=== PATIENT | male | born 1940 | race Caucasian/White ===

== ENCOUNTER 2021-03-23 08:35 | Observation (INO) | payer MEDICARE, SELFPAY ==
--- NOTE | ~2021-03-23 | XR_ITS ---
XR shoulder RT min 2V DATE: 03/23/2021 10:06 INDICATION: Fall. Right shoulder pain. TECHNIQUE: 3 views COMPARISON: 03/16/2011 right shoulder FINDINGS: There is a comminuted fractures of the proximal right humerus including fracture through th e surgical neck and fracture of the greater tuberosity. There is mild superolateral displacement of t he major distal fragment. Alignment is preserved at the acromioclavicular and glenohumeral joints. Osteopenia. IMPRESSION: Comminuted fracture the proximal humerus including fracture of the surgical neck and grea ter tuberosity Osteopenia Reviewed, dictated and finalized at location B. GENCY TECHNICIAN IMPRESSION: Comminuted fracture the proximal humerus including fracture of the surgical neck and greater tuberosity Osteopenia
[2021-03-23 08:39] VITALS: BP 132/79; PULSE 55; RESP 18; TEMP 36.1; O2SAT 100
--- NOTE | 2021-03-23 09:42 | ED.GENADULT ---
HPI - General Adult General Chief complaint: Fall Stated complaint: fall, right arm pain Time Seen by Provider: 03/23/21 09:10 Source: patient, family and RN notes reviewed Mode of arrival: ambulatory Limitations: no limitations History of Present Illness HPI narrative: Patient is a 80-year-old male who presents with his for evaluation of having sustained a ground-level fall that was witnessed this morning they were in the bathroom when he was attempting and lost his balance and began to go backwards patient fell injuring the right shoulder denies any head injury or loss of consciousness patient presents noting swelling and tenderness to the right shoulder region denies any head neck pain chest belly or other extremity injury or deformity has not had anything for pain. Patient has history of early stages of dementia hypertension notes history of unsteady gait. Patient denies any recent illness or complaints and on arrival notes moderate aching pain to the right shoulder worse with any movement or manipulation has not had anything for pain at this time Related Data Home Medications Medication Instructions Recorded Confirmed acetaminophen-codeine 1 tablet PO Q6H PRN 03/23/21 03/23/21 allopurinol 03/23/21 alprazolam 03/23/21 amlodipine 03/23/21 bupropion HCl PO 03/23/21 carvedilol 03/23/21 glipizide mg 03/23/21 pravastatin 03/23/21 prednisone 03/23/21 03/23/21 Allergies Allergy/AdvReac Type Severity Reaction Status Date / Time No Known Allergies Allergy Unknown Unverified 03/23/21 08:44 Review of Systems Review of Systems: All systems reviewed & are unremarkable except as noted in HPI and below PMFSH Past Medical History Medical History (Updated 03/23/21 @ 12:36 by Oren Nowak PA-C) Dementia Hyperlipidemia Hypertension Social History Social History (Updated 03/23/21 @ 10:35 by Oren Nowak PA-C) Smoking status: Never smoker Exam Narrative: GENERAL: Well-appearing, well-nourished, and in no acute distress. HEAD: Normocephalic, atraumatic. EYES: PERRLA and EOMI. ENT: Nares clear, no rhinorrhea or epistaxis. Mucous membranes moist. NECK: Supple. No adenopathy or masses. CHEST: Clear to auscultation. No respiratory distress. No wheezes rales or rhonchi HEART: Regular rate and rhythm. No murmur heard. Normal peripheral pulses. ABDOMEN: Soft, nontender, nondistended EXTREMITIES: Bruising swelling and tenderness of the right shoulder joint, remainder of extremities nontender no deformity. SKIN: Warm, dry, no rash. NEURO: No focal deficits. Alert and oriented x3. Cranial nerves II through XII grossly intact. Neurovascularly intact. Capillary refill less than 2 seconds PSYCH: Normal mood and affect. Course Course Emergency Course: Patient in the room found to have humerus fracture will be placed in hospital given his unsteady gait and concern for falls he is right-handed will be immobilized orthopedic surgery was consulted will follow him in hospital discussion was made with the hospitalist and he will be brought into the hospital given the safety concerns at home and his high risk for recurrent fall Consultations Consultation #1: Discussed case with orthopedist who will consult on the patient would like him placed in a shoulder immobilizer discussed case with the hospitalist service nurse practitioner Shante who is agreed to accept the patient to a medical surgical floor Date: 03/23/21 Vital Signs Vital signs: Vital Signs Temperature 97 F L 03/23/21 08:39 Pulse Rate 55 L 03/23/21 08:39 Respiratory Rate 18 03/23/21 08:39 Blood Pressure 132/79 03/23/21 08:39 Pulse Oximetry 100 03/23/21 08:39 Temperature 97 F L 03/23/21 08:39 Pulse Rate 61 03/23/21 10:45 Respiratory Rate 16 03/23/21 10:45 Blood Pressure 107/60 03/23/21 10:45 Pulse Oximetry 98 03/23/21 10:45 Medical Decision Making MDM Narrative Medical decision making narrati
[2021-03-23 10:23] LABS: Basophils Percent Auto 0.4 % (0.2-1.2); Eosinophils Absolute Auto 0.1 K/mm3 (0-0.3); Eosinophils Percent Auto 1.3 % (0-4.4); Hematocrit 38.8 % (42.0-52.0); Hemoglobin 13.2 g/dL (14.0-18.0); Immature Granulocyte Absolute 0.04 K/mm3 (0.00-0.031); Immature Granulocyte Percent A 0.4 % (0-0.5); Lymphocytes Absolute Auto 1.58 K/mm3 (0.9-3.2); Lymphocytes Percent Auto 15.7 % (18.3-44.2); Mean Corpuscular Hemoglobin 32.8 pg (26-34); Mean Corpuscular Volume 96.3 fl (80-100); Mean Platelet Volume 8.8 fl (7.4-10.4); Monocytes Absolute Auto 0.4 K/mm3 (0.1-0.6); Monocytes Percent Auto 3.9 % (2.6-8.5); Neutrophils Absolute Auto 7.9 K/mm3 (1.3-6.7); Neutrophils Percent Auto 78.3 % (45.5-73.1); Platelet Count Result 282 k/mm3 (150-375); Red Blood Count 4.03 M/mm3 (4.6-6.20); Red Cell Distribution Width 11.8 % (11.5-14.5); White Blood Count 10.1 K/mm3 (4.5-10.0)
[2021-03-23 10:35] LABS: Alanine Aminotransferase 17 U/L (4-50); Albumin Level 4.2 g/dL (3.5-5.1); Alkaline Phosphatase 94 U/L (38-126); Anion Gap 8 mmol/L (8-16); Aspartate Amino Transferase 20 U/L (17-59); Bilirubin,Total 1.1 mg/dL (0.2-1.3); Blood Urea Nitrogen 19 mg/dL (9-20); Calcium 8.8 mg/dL (8.4-10.2); Carbon Dioxide 23 mmol/L (22-30); Chloride 102 mmol/L (98-107); Estimated CRCL calculation 32 ml/min; Estimated Glomerular Filt Rate 39; Glucose 356 mg/dL (65-110); Potassium 4.4 mmol/L (3.4-5.0); Sodium 133 mmol/L (137-145)
[2021-03-23 10:45] VITALS: BP 107/60; PULSE 61; RESP 16; O2SAT 98
[2021-03-23] MEDS: SODIUM CHLORIDE 0.9% IV 1,000 ML 999 ML IV CONT (10:47)
[2021-03-23] MEDS: MORPHINE SULFATE (*CRX) 4 MG/ML INJ 2 MG IV PUSH (10:48)
[2021-03-23] MEDS: LACTATED RINGERS 1,000 ML 80 ML IV CONT (13:10)
[2021-03-23 13:11] VITALS: BP 100/67; PULSE 63; RESP 17; O2SAT 97
--- NOTE | 2021-03-23 13:18 | PC.NURSE ---
ordered pt meal tray at this time
--- NOTE | 2021-03-23 13:53 | PM.IMHP ---
H&P: HPI History of Present Illness Date/Time: 03/23/21 13:53 this is a 80-year-old male patient who presented to the emergency room with his for evaluation of sustaining sustaining a ground level fall that was witnessed this morning. They were in the bathroom and he started to lean backwards and fell on the floor the attempted to catch him.The patient had been complaining of right shoulder pain. The is answering the questions for the patient as he has a hx of dementia . The stated that it is not uncommon for the patient to have an unsteady gait. He had his righ arm in the sling and was using an utensils to eat with his left hand in the ed. He denies any head pain. He denies hitting his head and he is not on any blood thinners. Shoulder x-ray was read as comminuted fracture the proximal humerus including fracture of the surgical neck and greater tuberosity. Osteopenia. The right arm was placed in a sling. Ortho has been consulted. The patientwas given iv tylenol, iv morphine, and iv fluids in the ed. and H 13.2 and 38.8. Blood sugar 377. The patient as if of it.The patient is positive for covid . The patient wasInitially admitted to inpatient but then changed to observation. Date of service 03/23/2021. Chief Complaint: fall Review of Systems Review of Systems: All systems reviewed & are unremarkable except as noted in HPI and below Constitutional: Constitutional: Reports as per HPI and Reports no additional constitutional complaints Eyes: Eyes: Reports as per HPI and Reports no additional eye complaints ENT: Reports system reviewed and no additional complaints, except as documented and Reports Normal hearing present Cardiovascular: Cardiovascular: Reports no additional cardiovascular complaints Respiratory: Respiratory: Reports no additional respiratory complaints and Reports no additional respiratory complaints Gastrointestinal: Gastrointestinal: Reports as per HPI and Reports no additional gastrointestinal complaints Musculoskeletal: Musculoskeletal: Reports no additional musculoskeletal complaints Integumentary/Breasts: Skin/Breast: Reports system reviewed and no additional complaints, except as docu and Reports as per HPI Neurologic: Reports system reviewed and no additional complaints, except as documented, Reports as per HPI and Reports Normal hearing present Psychiatric: Psychiatric: Reports no additional psychiatric complaints and Reports as per HPI Endocrine: Endocrine: Reports no additional endocrine complaints Hematologic/Lymphatic: Hematologic/Lymphatic: Reports no additional hematologic/lymphatic complaints Allergic/Immunologic: Allergic/Immunologic: Reports no additional allergic/immunologic complaints [facility] Past Medical History Medical History (Updated 03/23/21 @ 16:39 by Shante Ponce NP) Anxiety Dementia Diabetes Gout Hyperlipidemia Hypertension Osteoarthritis Surgical History Surgical History (Updated 03/23/21 @ 13:56 by Shante Ponce NP) Cataract extraction status Family History Family History Mother Skin cancer Father Dementia Heart disease Social History Social History (Updated 03/23/21 @ 16:28 by Shante Ponce NP) Social History: He and his adopted 2children. His is the poa. 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 Lifelong nonsmoker. No alcohol marijuana or illicit drugs code status: dnr Smoking status: Never smoker Meds Home Medications and Allergies Home Medications Medication Instructions Recorded Confirmed Type acetaminophen-codeine 1 tablet PO Q6H PRN 03/23/21 03/23/21 History allopurinol 03/23/21 History alprazolam 03/23/21 History amlodipine 03/23/21 History bupropion HCl PO 03/23/21 History carvedilol 03/23/21 History glipizide mg 03/23/21 History pravastatin 03/23/21 History prednisone 03/23/21
[2021-03-23 14:30] LABS: Glucose Point of Care 377 mg/dl (65-105)
--- NOTE | 2021-03-23 14:52 | PCOTNOTE ---
Pt. currently in ED dept. Pt. will be evaluated upon admit to hospital.
[2021-03-23] MEDS: INSULIN ASPART (*BKC) 100 UNITS/ML SUB-Q ×2 (14:53→17:20)
[2021-03-23 15:11] LABS: SARS-CoV-2 RNA PCR Positive
[2021-03-23 17:18] LABS: Glucose Point of Care 347 mg/dl (65-105)
[2021-03-23] MEDS: MORPHINE SULFATE (*CRX) 2 MG/ML INJ IV PUSH (17:21)
[2021-03-23 17:24] VITALS: BP 100/67; PULSE 63; RESP 18; O2SAT 99
--- NOTE | 2021-03-23 18:31 | PC.NURSE ---
Tried to clarify medication with pt at bedside unable to inform this nurse what medication he takes, called no answer, calling daughter.
--- NOTE | 2021-03-23 19:16 | PC.NURSE ---
PEr POA, pt not to make health care discussion r/t dx dementia, medication clarified with and daughter via phone.
[2021-03-23 19:17] VITALS: BMI 25.1
--- NOTE | 2021-03-23 19:18 | PC.NURSE ---
This patient, Marcella Desai, was admitted to [facility] Surg Room 305-01 at 1742. Patient/family oriented to hospital policies and general routines including ID bracelet, bed and alarms, visiting hours, pain management, procedures, bathroom and other care routines, personal items, smoking policy, room service/diet, and visiting hours. Information on how to activate the Rapid Response Team has been discussed. Patient/Family are encouraged to report perceived risks to care and to ask questions if they do not understand what they are told or what they should do.
[2021-03-23 20:40] VITALS: BP 121/65; PULSE 62; RESP 16; TEMP 36.9; O2SAT 95
[2021-03-23] MEDS: buPROPion HCL SR (12 HR) 150 MG TAB PO (21:37)
[2021-03-23] MEDS: FAMOTIDINE 20 MG/2 ML VIAL IV PUSH (21:37)
[2021-03-23 23:54] VITALS: BP 121/83; PULSE 74; RESP 18; TEMP 36.6; O2SAT 94
[2021-03-24 04:00] VITALS: BP 114/89; PULSE 73; RESP 18; TEMP 36.6; O2SAT 96
[2021-03-24] MEDS: MORPHINE SULFATE (*CRX) 2 MG/ML INJ IV PUSH ×3 (04:46→18:27)
[2021-03-24 06:28] LABS: Glucose Point of Care 266 mg/dl (65-105)
[2021-03-24 06:32] LABS: Basophils Percent Auto 0.2 % (0.2-1.2); Eosinophils Absolute Auto 0.1 K/mm3 (0-0.3); Eosinophils Percent Auto 0.8 % (0-4.4); Hematocrit 37.2 % (42.0-52.0); Hemoglobin 12.6 g/dL (14.0-18.0); Immature Granulocyte Absolute 0.03 K/mm3 (0.00-0.031); Immature Granulocyte Percent A 0.4 % (0-0.5); Lymphocytes Absolute Auto 1.24 K/mm3 (0.9-3.2); Lymphocytes Percent Auto 14.8 % (18.3-44.2); Mean Corpuscular HGB Conc 33.9 g/dl (32-36); Mean Corpuscular Hemoglobin 32.6 pg (26-34); Mean Corpuscular Volume 96.4 fl (80-100); Mean Platelet Volume 8.9 fl (7.4-10.4); Monocytes Absolute Auto 0.6 K/mm3 (0.1-0.6); Monocytes Percent Auto 7.4 % (2.6-8.5); Neutrophils Absolute Auto 6.4 K/mm3 (1.3-6.7); Neutrophils Percent Auto 76.4 % (45.5-73.1); Platelet Count Result 251 k/mm3 (150-375); Red Blood Count 3.86 M/mm3 (4.6-6.20); Red Cell Distribution Width 11.6 % (11.5-14.5); White Blood Count 8.4 K/mm3 (4.5-10.0)
[2021-03-24 06:40] LABS: Alanine Aminotransferase 14 U/L (4-50); Albumin Level 3.8 g/dL (3.5-5.1); Alkaline Phosphatase 78 U/L (38-126); Anion Gap 7 mmol/L (8-16); Aspartate Amino Transferase 19 U/L (17-59); Bilirubin,Total 1.3 mg/dL (0.2-1.3); Blood Urea Nitrogen 15 mg/dL (9-20); Calcium 9.4 mg/dL (8.4-10.2); Carbon Dioxide 24 mmol/L (22-30); Chloride 103 mmol/L (98-107); Estimated CRCL calculation 38 ml/min; Estimated Glomerular Filt Rate 49; Glucose 262 mg/dL (65-110); Lactate Dehydrogenase 396 U/L (313-618); Magnesium 1.7 mg/dL (1.6-2.3); Potassium 3.9 mmol/L (3.4-5.0); Sodium 134 mmol/L (137-145)
--- NOTE | 2021-03-24 07:07 | PCOTNOTE ---
Waiting for ortho consult to complete OT evaluation. Will follow.
[2021-03-24 08:00] VITALS: BP 148/67; PULSE 77; RESP 16; TEMP 36.6; O2SAT 98
[2021-03-24] MEDS: ALPRAZolam (*CRX) 0.25 MG TABLET PO (08:45)
[2021-03-24] MEDS: FAMOTIDINE 20 MG/2 ML VIAL IV PUSH ×2 (08:46→20:31)
[2021-03-24] MEDS: INSULIN ASPART (*BKC) 100 UNITS/ML SUB-Q ×2 (08:49→12:45)
[2021-03-24 08:52] VITALS: PULSE 80
[2021-03-24] MEDS: amLODIPine BESYLATE 5 MG TABLET 10 MG PO (08:52)
[2021-03-24] MEDS: buPROPion HCL SR (12 HR) 150 MG TAB PO ×2 (08:52→20:31)
[2021-03-24] MEDS: LORATADINE 10 MG TABLET PO (08:52)
[2021-03-24] MEDS: allopurinoL 100 MG TABLET PO (08:52)
[2021-03-24] MEDS: LOSARTAN POTASSIUM 50 MG TABLET PO (08:52)
[2021-03-24] MEDS: carvediloL 6.25 MG TABLET PO (08:52)
[2021-03-24] MEDS: PRAVASTATIN SODIUM 20 MG TABLET PO (08:52)
[2021-03-24] MEDS: glipiZIDE 5 MG TABLET PO (08:52)
[2021-03-24 09:36] LABS: Glucose Point of Care 246 mg/dl (65-105)
[2021-03-24 11:59] LABS: Glucose Point of Care 207 mg/dl (65-105)
[2021-03-24 12:00] VITALS: BP 106/66; PULSE 66; RESP 16; TEMP 36.2; O2SAT 95
--- NOTE | 2021-03-24 13:36 | PM.DS ---
DS: Summary Time Spent with Patient Time attestation: Total time spent providing and/or coordinating discharge services: DS: Data Data Completed and Pending Labs on day of discharge: Labs from last 24 hours 03/24/21 03/24/21 03/24/21 11:56 08:48 06:14 WBC RBC Hgb Hct MCV MCH MCHC RDW Plt Count MPV Immature Gran % (Auto) Neut % (Auto) Lymph % (Auto) [place] % (Auto) Eos % (Auto) Baso % (Auto) Lymph # (Auto) [place] # (Auto) Eos # (Auto) Baso # (Auto) Abs Immat Gran (auto) Absolute Neuts (auto) Absolute Nucleated RBC Nucleated RBC % Sodium Potassium Chloride Carbon Dioxide Anion Gap BUN Creatinine Estim Creat Clear Calc Estimated GFR Glucose POC Capillary Glucose 207 H 246 H 266 H Hemoglobin A1c Lactic Acid Calcium Magnesium Ferritin Total Bilirubin AST ALT Alkaline Phosphatase Lactate Dehydrogenase Total Protein Albumin TSH (Reflex) SARS-CoV-2 RNA (RT-PCR) 03/24/21 03/24/21 03/24/21 05:51 05:51 05:51 WBC RBC Hgb Hct MCV MCH MCHC RDW Plt Count MPV Immature Gran % (Auto) Neut % (Auto) Lymph % (Auto) [place] % (Auto) Eos % (Auto) Baso % (Auto) Lymph # (Auto) [place] # (Auto) Eos # (Auto) Baso # (Auto) Abs Immat Gran (auto) Absolute Neuts (auto) Absolute Nucleated RBC Nucleated RBC % Sodium 134 L Potassium 3.9 Chloride 103 Carbon Dioxide 24 Anion Gap 7 L BUN 15 Creatinine 1.40 H Estim Creat Clear Calc 38 Estimated GFR 49 L Glucose 262 H POC Capillary Glucose Hemoglobin A1c Lactic Acid 1.0 Calcium 9.4 Magnesium 1.7 Ferritin 167.00 Total Bilirubin 1.3 AST 19 ALT 14 Alkaline Phosphatase 78 Lactate Dehydrogenase 396 Total Protein 6.0 L Albumin 3.8 TSH (Reflex) 2.290 SARS-CoV-2 RNA (RT-PCR) 03/24/21 03/24/21 03/23/21 05:51 05:51 17:16 WBC 8.4 RBC 3.86 L Hgb 12.6 L Hct 37.2 L MCV 96.4 MCH 32.6 MCHC 33.9 RDW 11.6 Plt Count 251 MPV 8.9 Immature Gran % (Auto) 0.4 Neut % (Auto) 76.4 H Lymph % (Auto) 14.8 L [place] % (Auto) 7.4 Eos % (Auto) 0.8 Baso % (Auto) 0.2 Lymph # (Auto) 1.24 [place] # (Auto) 0.6 Eos # (Auto) 0.1 Baso # (Auto) 0.0 Abs Immat Gran (auto) 0.03 Absolute Neuts (auto) 6.4 Absolute Nucleated RBC 0.0 Nucleated RBC % 0.0 Sodium Potassium Chloride Carbon Dioxide Anion Gap BUN Creatinine Estim Creat Clear Calc Estimated GFR Glucose POC Capillary Glucose 347 H Hemoglobin A1c 10.0 H Lactic Acid Calcium Magnesium Ferritin Total Bilirubin AST ALT Alkaline Phosphatase Lactate Dehydrogenase Total Protein Albumin TSH (Reflex) SARS-CoV-2 RNA (RT-PCR) 03/23/21 03/23/21 14:26 14:22 WBC RBC Hgb Hct MCV MCH MCHC RDW Plt Count MPV Immature Gran % (Auto) Neut % (Auto) Lymph % (Auto) [place] % (Auto) Eos % (Auto) Baso % (Auto) Lymph # (Auto) [place] # (Auto) Eos # (Auto) Baso # (Auto) Abs Immat Gran (auto) Absolute Neuts (auto) Absolute Nucleated RBC Nucleated RBC % Sodium Potassium Chloride Carbon Dioxide Anion Gap BUN Creatinine Estim Creat Clear Calc Estimated GFR Glucose POC Capillary Glucose 377 H Hemoglobin A1c Lactic Acid Calcium Magnesium Ferritin Total Bilirubin AST ALT Alkaline Phosphatase Lactate Dehydrogenase Total Protein Albumin TSH (Reflex) SARS-CoV-2 RNA (RT-PCR) Positive A Discharge Plan Discharge Attending physician on discharge: Abdelrahman Beckwith Consulting providers: Jl Robbins Discharging Clinician: Abdelrahman Beckwith Patient Disposition: Home, Self-Care Act
--- NOTE | 2021-03-24 15:41 | PC.NURSE ---
Patient's discharge order stopped per Dr. Beckwith r/t patient's family request. Patient's family would like further PT/OT evaluation r/t recent fall and fracture. Family made aware per Dr. Robbins that patient is not a candidate for surgery r/t dementia dx and age and fracture status. Daughter of patient made aware and voiced understanding.
[2021-03-24 16:00] VITALS: BP 143/73; PULSE 73; RESP 18; TEMP 36.4; O2SAT 99
[2021-03-24 16:40] LABS: Glucose Point of Care 162 mg/dl (65-105)
[2021-03-24 20:00] VITALS: BP 124/80; PULSE 76; PULSE 84; RESP 18; TEMP 37.1; O2SAT 100; O2SAT 90
[2021-03-24 20:45] LABS: Glucose Point of Care 231 mg/dl (65-105)
[2021-03-25] VITALS: BP 121/93; PULSE 84; RESP 18; TEMP 37.6; O2SAT 90
[2021-03-25 04:00] VITALS: BP 128/78; PULSE 90; RESP 18; TEMP 36.7; O2SAT 97
[2021-03-25] MEDS: MORPHINE SULFATE (*CRX) 2 MG/ML INJ IV PUSH ×2 (05:53→09:18)
[2021-03-25 08:00] VITALS: BP 128/80; PULSE 83; PULSE 94; RESP 18; TEMP 36.6; O2SAT 95
[2021-03-25 08:13] LABS: Glucose Point of Care 228 mg/dl (65-105)
[2021-03-25] MEDS: ALPRAZolam (*CRX) 0.25 MG TABLET PO (09:18)
[2021-03-25] MEDS: FAMOTIDINE 20 MG/2 ML VIAL IV PUSH (09:19)
[2021-03-25] MEDS: amLODIPine BESYLATE 5 MG TABLET 10 MG PO (09:19)
[2021-03-25] MEDS: buPROPion HCL SR (12 HR) 150 MG TAB PO (09:19)
[2021-03-25] MEDS: PRAVASTATIN SODIUM 20 MG TABLET PO (09:19)
[2021-03-25] MEDS: allopurinoL 100 MG TABLET PO (09:19)
[2021-03-25 09:20] VITALS: PULSE 94
[2021-03-25] MEDS: LORATADINE 10 MG TABLET PO (09:20)
[2021-03-25] MEDS: carvediloL 6.25 MG TABLET PO (09:20)
[2021-03-25] MEDS: LOSARTAN POTASSIUM 50 MG TABLET PO (09:20)
[2021-03-25] MEDS: glipiZIDE 5 MG TABLET PO (09:20)
[2021-03-25] MEDS: LIDOCAINE 5% PATCH 2 PATCH TRANSDERM (09:21)
[2021-03-25] MEDS: INSULIN ASPART (*BKC) 100 UNITS/ML SUB-Q ×2 (09:22→13:06)
[2021-03-25 11:36] VITALS: BMI 25.1
--- NOTE | 2021-03-25 11:50 | PM.IMPN ---
Progress Note: A&P Assessment and Plan (1) Closed fracture of proximal end of right humerus: Code(s): S42.201A - Unspecified fracture of upper end of right humerus, initial encounter for closed fracture Status: Acute Assessment and Plan: ortho has been consulted, pt /ot evaluation 03/24/2021 interval history. patient with COVID remains clinically stable not requiring any oxygen and does not appear to be any distress, patient had a fall and has a fracture of the right humerus orthopedic review x-ray of the arm patient does not need any surgical intervention recommended sling and conservative management with pain medication, and physical therapy. plan was to discharge the patient home yesterday within was decided by the family to transfer the patient to care home facility, discussed with child care associate teacher and it is in process. will continue to monitor. (2) COVID: Code(s): U07.1 - COVID-19 Status: Acute Assessment and Plan: the patient is on room air at this time. contact and air born precautions. (3) Diabetes: Code(s): E11.9 - Type 2 diabetes mellitus without complications Status: Chronic Assessment and Plan: The patient has been on steroids for his arthritis and this may be elevating his blood sugars. for now i placed him on ss insulin with accuchecks ac and hs. cage supervisor consult and diabetic eduator needed as well . may consider adding another oral medication if his blood sugars continue to remain elevated. continue with home glipizide (4) Anxiety: Code(s): F41.9 - Anxiety disorder, unspecified Status: Chronic Assessment and Plan: constinue with alprazolam and Bupropion (5) Gout: Code(s): M10.9 - Gout, unspecified Status: Chronic Assessment and Plan: continue with allopurinal (6) Hypertension: Code(s): I10 - Essential (primary) hypertension Status: Chronic Assessment and Plan: continue with correg (7) Hyperlipidemia: Code(s): E78.5 - Hyperlipidemia, unspecified Status: Chronic Assessment and Plan: continue with prevastatin Subjective Date/time seen: 03/24/2021 this is a 80-year-old male patient who presented to the emergency room with his for evaluation of sustaining sustaining a ground level fall that was witnessed this morning. They were in the bathroom and he started to lean backwards and fell on the floor the attempted to catch him.The patient had been complaining of right shoulder pain. The is answering the questions for the patient as he has a hx of dementia . The stated that it is not uncommon for the patient to have an unsteady gait. He had his righ arm in the sling and was using an utensils to eat with his left hand in the ed. He denies any head pain. He denies hitting his head and he is not on any blood thinners. Shoulder x-ray was read as comminuted fracture the proximal humerus including fracture of the surgical neck and greater tuberosity. Osteopenia. The right arm was placed in a sling. Ortho has been consulted. The patientwas given iv tylenol, iv morphine, and iv fluids in the ed. and H 13.2 and 38.8. Blood sugar 377. The patient as if of it.The patient is positive for covid . The patient was Initially admitted to inpatient but then changed to observation. Date of service 03/23/2021. 03/24/2021 interval history. patient with COVID remains clinically stable not requiring any oxygen and does not appear to be any distress, patient had a fall and has a fracture of the right humerus orthopedic review x-ray of the arm patient does not need any surgical intervention recommended sling and conservative management with pain medication, and physical therapy. plan was to discharge the patient home yesterday within was decided by the family to transfer the patient to care home facility, discussed with child care associate teacher and it is in process. will lindsay
--- NOTE | 2021-03-25 12:05 | PM.IMPN ---
Progress Note: A&P Assessment and Plan (1) Closed fracture of proximal end of right humerus: Code(s): S42.201A - Unspecified fracture of upper end of right humerus, initial encounter for closed fracture Status: Acute Assessment and Plan: ortho has been consulted, pt /ot evaluation 03/24/2021 interval history. patient with COVID remains clinically stable not requiring any oxygen and does not appear to be any distress, patient had a fall and has a fracture of the right humerus orthopedic review x-ray of the arm patient does not need any surgical intervention recommended sling and conservative management with pain medication, and physical therapy. plan was to discharge the patient home yesterday within was decided by the family to transfer the patient to intermediate facility, discussed with farm or ranch animal caretaker and it is in process. will continue to monitor. 03/25/2021 interval history. today patient remains clinically stable sitting in the chair eating his breakfast has no new complaints patient has history of diabetes his hemoglobin A1c is 10, patient is currently glipizide 5mg, patient remains clinically stable will discharge patient today (2) COVID: Code(s): U07.1 - COVID-19 Status: Acute Assessment and Plan: the patient is on room air at this time. contact and air born precautions. (3) Diabetes: Code(s): E11.9 - Type 2 diabetes mellitus without complications Status: Chronic Assessment and Plan: The patient has been on steroids for his arthritis and this may be elevating his blood sugars. for now i placed him on ss insulin with accuchecks ac and hs. time study analyst consult and diabetic eduator needed as well . may consider adding another oral medication if his blood sugars continue to remain elevated. continue with home glipizide (4) Anxiety: Code(s): F41.9 - Anxiety disorder, unspecified Status: Chronic Assessment and Plan: constinue with alprazolam and Bupropion (5) Gout: Code(s): M10.9 - Gout, unspecified Status: Chronic Assessment and Plan: continue with allopurinal (6) Hypertension: Code(s): I10 - Essential (primary) hypertension Status: Chronic Assessment and Plan: continue with correg (7) Hyperlipidemia: Code(s): E78.5 - Hyperlipidemia, unspecified Status: Chronic Assessment and Plan: continue with prevastatin Subjective Date/time seen: 03/25/21 12:05 03/24/2021 interval history. patient with COVID remains clinically stable not requiring any oxygen and does not appear to be any distress, patient had a fall and has a fracture of the right humerus orthopedic review x-ray of the arm patient does not need any surgical intervention recommended sling and conservative management with pain medication, and physical therapy. plan was to discharge the patient home yesterday within was decided by the family to transfer the patient to intermediate facility, discussed with farm or ranch animal caretaker and it is in process. will continue to monitor. 03/25/2021 interval history. today patient remains clinically stable sitting in the chair eating his breakfast has no new complaints patient has history of diabetes his hemoglobin A1c is 10, patient is currently glipizide 5mg, patient remains clinically stable will discharge patient today Review of Systems Review of Systems: All systems reviewed & are unremarkable except as noted in HPI and below Exam Narrative: Patient is comfortable, NAD HEENT: eyes are clear and none icteric LUNGS: normal respiratory effort ABD: not distended Lower extremities: no edema MS: right arm in the sling. SKIN: nonjaundiced Neuro: grossly intact. Objective Data Vital Signs Vital Signs: Vital Signs - 24 hr 03/24/21 16:00 03/24/21 20:00 03/25/21 00:00 Temperature 97.5 F L 98.8 F 99.7 F H Pulse Rate 73 84 84 Respiratory Rate 18 18 18 Blood Pr
[2021-03-25 12:12] LABS: Glucose Point of Care 266 mg/dl (65-105)
--- NOTE | 2021-03-25 12:50 | PM.DS ---
DS: Admitting Diagnosis Discharge Date 03/25/2021 Admitting Diagnosis Fall DS: Discharge Diagnosis Discharge Diagnosis (1) Closed fracture of proximal end of right humerus: Qualifiers: Encounter type: initial encounter Fracture morphology: unspecified fracture morphology Qualified Code(s): S42.201A - Unspecified fracture of upper end of right humerus, initial encounter for closed fracture Code(s): S42.201A - Unspecified fracture of upper end of right humerus, initial encounter for closed fracture Status: Acute Assessment and Plan: ortho has been consulted, pt /ot evaluation 03/24/2021 interval history. patient with COVID remains clinically stable not requiring any oxygen and does not appear to be any distress, patient had a fall and has a fracture of the right humerus orthopedic review x-ray of the arm patient does not need any surgical intervention recommended sling and conservative management with pain medication, and physical therapy. plan was to discharge the patient home yesterday within was decided by the family to transfer the patient to long-term facility, discussed with social worker palliative care and it is in process. will continue to monitor. 03/25/2021 interval history. today patient remains clinically stable sitting in the chair eating his breakfast has no new complaints patient has history of diabetes his hemoglobin A1c is 10, patient is currently glipizide 5mg, patient remains clinically stable will discharge patient today (2) COVID: Code(s): U07.1 - COVID-19 Status: Acute Assessment and Plan: the patient is on room air at this time. contact and air born precautions. 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 for now i placed him on ss insulin with accuchecks ac and hs. senior bioinformatics scientist consult and diabetic eduator needed as well . may consider adding another oral medication if his blood sugars continue to remain elevated. continue with home glipizide (4) Anxiety: Code(s): F41.9 - Anxiety disorder, unspecified Status: Chronic Assessment and Plan: constinue with alprazolam and Bupropion (5) Gout: Code(s): M10.9 - Gout, unspecified Status: Chronic Assessment and Plan: continue with allopurinal (6) Hypertension: Qualifiers: Hypertension type: unspecified secondary hypertension Qualified Code(s): I15.9 - Secondary hypertension, unspecified Code(s): I10 - Essential (primary) hypertension Status: Chronic Assessment and Plan: continue with correg (7) Hyperlipidemia: Code(s): E78.5 - Hyperlipidemia, unspecified Status: Chronic Assessment and Plan: continue with prevastatin DS: Summary Hospital Course Reason for hospitalization: this is a 80-year-old male patient who presented to the emergency room with his for evaluation of sustaining sustaining a ground level fall that was witnessed this morning. They were in the bathroom and he started to lean backwards and fell on the floor the attempted to catch him.The patient had been complaining of right shoulder pain. The is answering the questions for the patient as he has a hx of dementia . The stated that it is not uncommon for the patient to have an unsteady gait. He had his righ arm in the sling and was using an utensils to eat with his left hand in the ed. He denies any head pain. He denies hitting his head and he is not on any bl
[2021-03-25 16:55] VITALS: BP 115/83; PULSE 72; RESP 16; TEMP 36.7; O2SAT 93
[2021-03-25 17:54] LABS: Glucose Point of Care 197 mg/dl (65-105)
== END 2021-03-25 18:10 ==
LOC: ANHED 12:36 → ANH3MEDSUR 14:30
PROVIDERS: Emergency Medicine Emergency Medical Services; Nurse Practitioner; Admitting Provider Family Medicine; Emergency Provider Emergency Medicine; PCP Internal Medicine; Visit Provider Family Medicine
DX: S42.211A Unspecified displaced fracture of surgical neck of right humerus, initial encounter for closed fracture (principal); S42.251A Displaced fracture of greater tuberosity of right humerus, initial encounter for closed fracture; U07.1 COVID-19; W18.39XA Other fall on same level, initial encounter; F03.90 Unspecified dementia, unspecified severity, without behavioral disturbance, psychotic disturbance, mood disturbance, and anxiety; I10 Essential (primary) hypertension; E78.5 Hyperlipidemia, unspecified; E11.65 Type 2 diabetes mellitus with hyperglycemia; M10.9 Gout, unspecified; F41.9 Anxiety disorder, unspecified; M19.90 Unspecified osteoarthritis, unspecified site; Z79.84 Long term (current) use of oral hypoglycemic drugs
CPT/HCPCS: 36415; 73030; 80053; 82728; 82948; 83036; 83605; 83615; 83735; 84443; 85025; 96365; 96375; 96376; 97161; 97165; 99285; A9270; C9803; G0378; J0131; J1815; J2270; J7030; J7120; U0003; U0005

== ENCOUNTER 2021-03-25 18:58 | Inpatient (IN) | payer MEDICARE, SELFPAY ==
--- NOTE | ~2021-03-25 | XR_ITS ---
EXAMINATION: XR shoulder RT min 2V DATE: 03/30/2021 07:31 INDICATION: Right shoulder reinjury with new deformity. TECHNIQUE: AP internally and externally rotated, AP oblique externally rotated and transscapular Y vi ews of the right shoulder were obtained. COMPARISON: None FINDINGS: Acromioclavicular joint separation with 1.5-2 cm cephalad subluxation of the lateral head of the clav icle relative to the acromion. Heterotopic ossification is seen along the widened coracoclavicular in terval consistent with a chronic ligament tear likely related to previous acromioclavicular joint sep aration. Subacute appearing comminuted fractures of the proximal right humerus which is now in near-anatomic a lignment with reduction of prior posterior angulation along the oblique fracture involving the surgic al neck and posterior aspect of the greater tuberosity. There is minimal amount of residual displacem ent. There appears to be early resorptive change in a few tiny bone fragments at the posterior margin of the fracture. No productive changes of healing yet apparent. No new fractures identified. Mild os teoarthritis at the right glenohumeral joint. Visualized portions of the right lung is clear. IMPRESSION: 1. 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 2. Subacute 1 part fracture of the proximal right humerus now in near-anatomic alignment. Reviewed, dictated and finalized at location A. TER HELPER
--- NOTE | 2021-03-25 19:11 | ADMGEN ---
This patient, Marcella Desai, was admitted to 2nd Floor Room 209-1. Patient/family oriented to hospital policies and general routines including ID bracelet, bed and alarms, visiting hours, pain management, procedures, bathroom and other care routines, personal items, smoking policy, room service/diet, and visiting hours. Information on how to activate the Rapid Response Team has been discussed. Patient/Family are encouraged to report perceived risks to care and to ask questions if they do not understand what they are told or what they should do.
--- NOTE | 2021-03-25 19:33 | PC.NURSE ---
Jaime Patel, TRANSPORTATION MAINTENANCE OPERATOR/Hospitalist, notified of patient arrival from [facility]. Med rec completed. Jaime Patel stated understanding.
[2021-03-25 19:53] VITALS: PULSE 70; RESP 14; O2SAT 96
[2021-03-25 19:55] VITALS: BP 109/66; PULSE 70; RESP 16; TEMP 36.4; O2SAT 97
[2021-03-25 20:02] VITALS: BMI 25.1
[2021-03-25 21:25] LABS: Glucose Point of Care 154 mg/dl (65-105)
[2021-03-25 23:54] VITALS: BP 105/65; PULSE 66; RESP 14; TEMP 36.6; O2SAT 97
[2021-03-26 08:00] VITALS: BP 130/66; PULSE 70; RESP 16; TEMP 36.6; O2SAT 97
[2021-03-26 08:07] LABS: Glucose Point of Care 193 mg/dl (65-105)
[2021-03-26] MEDS: amLODIPine BESYLATE 5 MG TABLET 10 MG PO (09:15)
[2021-03-26] MEDS: LORATADINE 10 MG TABLET PO (09:15)
[2021-03-26] MEDS: LOSARTAN POTASSIUM 50 MG TABLET PO (09:15)
[2021-03-26] MEDS: ALPRAZolam (*CRX) 0.25 MG TABLET PO (09:15)
[2021-03-26] MEDS: ENOXAPARIN 40 MG/0.4 ML SYRINGE SUB-Q (09:15)
[2021-03-26] MEDS: PRAVASTATIN SODIUM 20 MG TABLET PO (09:15)
[2021-03-26] MEDS: allopurinoL 100 MG TABLET PO (09:15)
[2021-03-26] MEDS: FAMOTIDINE 20 MG TABLET PO ×2 (09:20→21:01)
[2021-03-26] MEDS: buPROPion HCL SR (12 HR) 150 MG TAB PO ×2 (09:20→21:01)
[2021-03-26] MEDS: LIDOCAINE 5% PATCH 2 PATCH TRANSDERM (09:45)
[2021-03-26 12:15] LABS: Glucose Point of Care 238 mg/dl (65-105)
--- NOTE | 2021-03-26 14:25 | PM.IMHP ---
H&P: HPI History of Present Illness Date/Time: 03/26/21 14:25 This is a 80-year-old male that presents to our hospital with a history of hypertension or diabetes he is alert oriented 2-3 with forgetfulness. Mr. Judd has a right shoulder fracture that is splinted that is not going to indicate any surgical interventions. Patient is here for rehab as his is not able to care for him at this time as she is sick. Patient was diagnosed with Covid on 03/23/2021 reading the chart a previous visit patient has falls often as it is not unusual. At this time patient will be admitted to [facility] with physical therapy to evaluate and treat in a droplet isolation room due to Covid. Chief Complaint: Closed fracture of proximal end of right humerus, weakness and strength Review of Systems Review of Systems: Right arm and shoulder pain, confusion forgetfulness due to dementia All systems reviewed & are unremarkable except as noted in HPI and below PMFSH Past Medical History Medical History Anxiety Dementia Diabetes Gout Hyperlipidemia Hypertension Osteoarthritis Surgical History Surgical History Cataract extraction status Family History Family History Mother Skin cancer Father Dementia Heart disease Social History Social History Social History: He and his adopted 2children. His is the poa. 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 Lifelong nonsmoker. No alcohol marijuana or illicit drugs code status: dnr Smoking status: Never smoker Second hand tobacco smoke exposure: No Alcohol intake: current Drinks per week: 2 Substance use: never Substance use type: does not use Spiritual care concerns: No Meds Home Medications and Allergies Home Medications Medication Instructions Recorded Confirmed Type allopurinol 100 mg PO DAILY 03/23/21 03/25/21 History alprazolam 0.25 mg PO DAILY 03/23/21 03/25/21 History amlodipine 10 mg PO DAILY 03/23/21 03/25/21 History bupropion HCl 150 mg PO BID 03/23/21 03/25/21 History carvedilol 6.25 mg PO DAILY 03/23/21 03/25/21 History cetirizine [Zyrtec] 10 mg PO DAILY 03/23/21 03/25/21 History famotidine [Pepcid] 20 mg PO BID 03/23/21 03/25/21 History glipizide 5 mg PO DAILY 03/23/21 03/25/21 History losartan 50 mg PO DAILY 03/23/21 03/25/21 History pravastatin 20 mg PO DAILY 03/23/21 03/25/21 History prednisone 2.5 mg PO PRN PRN 03/23/21 03/25/21 History hydrocodone-acetaminophen 1 tablet PO Q6H PRN #14 tablet 03/24/21 03/25/21 Rx lidocaine [Lidoderm] 2 patch TRANSDERMAL DAILY #10 ea 03/24/21 03/25/21 Rx Allergies Allergy/AdvReac Type Severity Reaction Status Date / Time No Known Allergies Allergy Unknown Unverified 03/23/21 08:44 Vital Signs Vital Signs - 24 hr 03/25/21 19:53 03/25/21 19:55 03/25/21 23:54 Temperature 97.6 F 97.9 F Pulse Rate 70 70 66 Respiratory Rate 14 16 14 Blood Pressure 109/66 105/65 Pulse Oximetry 96 97 97 Exam Narrative: GENERAL:Well-appearing, well-nourished, and in no acute distress. HEAD:Normocephalic, EYES: PERRLA and EOMI. ENT: Nares clear Mucous membranes moist. CHEST: Clear to auscultation. No respiratory distress. HEART: Regular rate and rhythm. Normal peripheral pulses. ABDOMEN: Soft, nontender, normal active bowel sounds. EXTREMITIES: Decreased right arm range of motion which is in a sling bruising noted multiple stages of healing. No edema. SKIN: Warm, dry, no rash. Bruising noted multiple stages of healing NEURO: No focal deficits. Alert and oriented x3 at this time some confusion is noted sporadic Assessment and Plan Assessment and plan (1) Closed fracture of proximal end of right humerus: Qualifiers: Encounter type:
[2021-03-26 16:00] VITALS: BP 118/74; PULSE 68; RESP 16; TEMP 36.7; O2SAT 97
[2021-03-26 17:09] LABS: Glucose Point of Care 204 mg/dl (65-105)
[2021-03-26 21:16] LABS: Glucose Point of Care 234 mg/dl (65-105)
[2021-03-26] MEDS: HYDROcodone/acetaminophen (*CRX) 5-325 MG TABLET 1 TAB PO (21:19)
[2021-03-27] VITALS: BP 105/65; PULSE 67; RESP 18; TEMP 36.6; O2SAT 97
[2021-03-27] MEDS: HYDROcodone/acetaminophen (*CRX) 5-325 MG TABLET 1 TAB PO ×3 (03:22→17:49)
[2021-03-27 08:00] VITALS: BP 119/68; PULSE 74; RESP 18; TEMP 36.3; O2SAT 96
[2021-03-27 08:28] LABS: Glucose Point of Care 193 mg/dl (65-105)
[2021-03-27 09:14] VITALS: PULSE 78
[2021-03-27] MEDS: PRAVASTATIN SODIUM 20 MG TABLET PO (09:14)
[2021-03-27] MEDS: carvediloL 6.25 MG TABLET PO (09:14)
[2021-03-27] MEDS: amLODIPine BESYLATE 5 MG TABLET 10 MG PO (09:14)
[2021-03-27] MEDS: allopurinoL 100 MG TABLET PO (09:14)
[2021-03-27] MEDS: LOSARTAN POTASSIUM 50 MG TABLET PO (09:14)
[2021-03-27] MEDS: buPROPion HCL SR (12 HR) 150 MG TAB PO ×2 (09:14→20:46)
[2021-03-27] MEDS: ALPRAZolam (*CRX) 0.25 MG TABLET PO (09:14)
[2021-03-27] MEDS: LORATADINE 10 MG TABLET PO (09:14)
[2021-03-27] MEDS: LIDOCAINE 5% PATCH 2 PATCH TRANSDERM (09:14)
[2021-03-27] MEDS: FAMOTIDINE 20 MG TABLET PO ×2 (09:14→20:47)
[2021-03-27] MEDS: ENOXAPARIN 40 MG/0.4 ML SYRINGE SUB-Q (09:15)
[2021-03-27 12:13] LABS: Glucose Point of Care 243 mg/dl (65-105)
[2021-03-27] MEDS: IBUPROFEN 400 MG TABLET PO (13:00)
[2021-03-27 15:54] VITALS: BP 112/78; PULSE 70; RESP 18; TEMP 36.4; O2SAT 96
[2021-03-27 17:26] LABS: Glucose Point of Care 223 mg/dl (65-105)
[2021-03-27 20:44] LABS: Glucose Point of Care 173 mg/dl (65-105)
[2021-03-28] VITALS: BP 106/62; PULSE 76; RESP 18; TEMP 36.1; O2SAT 96
[2021-03-28 08:00] VITALS: BP 109/68; PULSE 72; RESP 18; TEMP 36.8; O2SAT 96
[2021-03-28 08:37] LABS: Glucose Point of Care 219 mg/dl (65-105)
[2021-03-28] MEDS: ENOXAPARIN 40 MG/0.4 ML SYRINGE SUB-Q (08:56)
[2021-03-28] MEDS: LIDOCAINE 5% PATCH 2 PATCH TRANSDERM (08:56)
[2021-03-28 08:57] VITALS: PULSE 72
[2021-03-28] MEDS: carvediloL 6.25 MG TABLET PO (08:57)
[2021-03-28] MEDS: amLODIPine BESYLATE 5 MG TABLET 10 MG PO (08:57)
[2021-03-28] MEDS: PRAVASTATIN SODIUM 20 MG TABLET PO (08:57)
[2021-03-28] MEDS: buPROPion HCL SR (12 HR) 150 MG TAB PO ×2 (08:57→20:29)
[2021-03-28] MEDS: LORATADINE 10 MG TABLET PO (08:57)
[2021-03-28] MEDS: ALPRAZolam (*CRX) 0.25 MG TABLET PO (08:58)
[2021-03-28] MEDS: FAMOTIDINE 20 MG TABLET PO ×2 (08:58→22:29)
[2021-03-28] MEDS: LOSARTAN POTASSIUM 50 MG TABLET PO (08:58)
[2021-03-28] MEDS: allopurinoL 100 MG TABLET PO (08:58)
[2021-03-28] MEDS: HYDROcodone/acetaminophen (*CRX) 5-325 MG TABLET 1 TAB PO ×2 (08:58→17:01)
[2021-03-28 11:57] LABS: Glucose Point of Care 206 mg/dl (65-105)
[2021-03-28] MEDS: IBUPROFEN 400 MG TABLET PO (13:25)
--- NOTE | 2021-03-28 15:15 | PC.NURSE ---
Patient bed alarm sounding, patient climbed out of bed, ambulating in hallway without cane. Escorted patient back to bed
[2021-03-28 16:00] VITALS: BP 113/67; PULSE 68; RESP 20; TEMP 37; O2SAT 99
[2021-03-28 17:11] LABS: Glucose Point of Care 217 mg/dl (65-105)
[2021-03-28] MEDS: MELATONIN 3 MG TABLET 6 MG PO (20:33)
[2021-03-29] VITALS: BP 116/70; PULSE 68; RESP 20; TEMP 36.5; O2SAT 96
[2021-03-29 07:50] VITALS: BP 127/100; PULSE 94; RESP 16; TEMP 36.7; O2SAT 94
[2021-03-29] MEDS: LIDOCAINE 5% PATCH 2 PATCH TRANSDERM (09:25)
[2021-03-29 09:26] VITALS: PULSE 94
[2021-03-29] MEDS: carvediloL 6.25 MG TABLET PO (09:26)
[2021-03-29] MEDS: PRAVASTATIN SODIUM 20 MG TABLET PO (09:26)
[2021-03-29] MEDS: amLODIPine BESYLATE 5 MG TABLET 10 MG PO (09:26)
[2021-03-29] MEDS: LOSARTAN POTASSIUM 50 MG TABLET PO (09:26)
[2021-03-29] MEDS: buPROPion HCL SR (12 HR) 150 MG TAB PO ×2 (09:26→21:00)
[2021-03-29] MEDS: LORATADINE 10 MG TABLET PO (09:26)
[2021-03-29] MEDS: ALPRAZolam (*CRX) 0.25 MG TABLET PO (09:27)
[2021-03-29] MEDS: ENOXAPARIN 40 MG/0.4 ML SYRINGE SUB-Q (09:27)
[2021-03-29] MEDS: allopurinoL 100 MG TABLET PO (09:27)
[2021-03-29] MEDS: FAMOTIDINE 20 MG TABLET PO ×2 (09:27→21:01)
--- NOTE | 2021-03-29 09:30 | PC.NURSE ---
blood sugar check 421, GATE MANAGER notified, new orders received.
[2021-03-29] MEDS: HYDROcodone/acetaminophen (*CRX) 5-325 MG TABLET 1 TAB PO ×2 (09:34→15:39)
[2021-03-29 12:08] LABS: Glucose Point of Care 190 mg/dl (65-105)
[2021-03-29 16:00] VITALS: BP 112/57; PULSE 78; RESP 18; TEMP 36.4; O2SAT 98
[2021-03-29 16:48] LABS: Glucose Point of Care 156 mg/dl (65-105)
[2021-03-29] MEDS: MELATONIN 3 MG TABLET 6 MG PO (21:01)
[2021-03-29 21:15] LABS: Glucose Point of Care 234 mg/dl (65-105)
[2021-03-30] VITALS: BP 123/63; PULSE 79; RESP 14; TEMP 37.3; O2SAT 97
[2021-03-30] MEDS: HYDROcodone/acetaminophen (*CRX) 5-325 MG TABLET 1 TAB PO ×3 (01:37→17:27)
[2021-03-30 05:28] LABS: Hematocrit 37.2 % (37.0-46.0); Hemoglobin 12.5 g/dL (12.4-15.3); Mean Corpuscular HGB Conc 33.6 g/dL (32.0-36.0); Mean Corpuscular Hemoglobin 32.2 pg (27.0-31.0); Mean Corpuscular Volume 95.9 fL (78.0-102.0); Platelet Count Result 324 K/mm3 (150-420); Red Blood Count 3.88 M/mm3 (4.70-6.10); Red Cell Distribution Width 11.7 % (11.6-14.4); White Blood Count 7.3 K/mm3 (4.8-10.8)
[2021-03-30 05:43] LABS: Anion Gap 11 mmol/L (8-16); Blood Urea Nitrogen 21 mg/dL (7-18); Calcium 8.9 mg/dL (8.5-10.1); Carbon Dioxide 27 mmol/L (21-32); Chloride 99 mmol/L (98-108); Estimated CRCL calculation 40 ml/min; Estimated Glomerular Filt Rate 49; Glucose 212 mg/dL (70-99); Osmolality Calculated 293 mOsm/kg (285-295); Potassium 4.6 mmol/L (3.5-5.1); Sodium 137 mmol/L (136-145)
[2021-03-30] MEDS: IBUPROFEN 400 MG TABLET PO (06:22)
--- NOTE | 2021-03-30 06:28 | PC.NURSE ---
Patient awake in room when rounding. Asked if he would like to get up to toilet-stated no he did not have to. Noted to appear to be uncomfortable. Patient had removed immobilizer again. While helping patient arrange blankets noted his right collarbone appeared more uneven. Patient complained of increased pain-rarely complains of pain. Advised charge nurse and will have REAL PROPERTY APPRAISER examine patient.
--- NOTE | 2021-03-30 06:49 | PC.NURSE ---
SUBSTANCE ABUSE SPECIALIST assessed patient's shoulder. at that time patient stated he had displaced the shoulder several years ago prior to this most recent fall,
[2021-03-30 07:40] VITALS: BP 125/56; PULSE 77; RESP 16; TEMP 36.6; O2SAT 96
[2021-03-30 08:21] LABS: Glucose Point of Care 162 mg/dl (65-105)
--- NOTE | 2021-03-30 08:45 | PM.EVENT ---
Event Note Event Note Event Note: This is 80-year-old patient who was confused last night who has a right shoulder fracture patient removed his shoulder splint pulled off and attempted to put on a coat because he said he was leaving patient has a slight bulge in his upper shoulder nurse was concerned about whether or not patient has made his injury worse ordered a 2 view x-ray. Acromioclavicular joint separation with 1.5-2 cm cephalad subluxation of the lateral head of the clavicle relative to the acromion. Heterotopic ossification is seen along the widened coracoclavicular interval consistent with a chronic ligament tear likely related to previous acromioclavicular joint separation. Subacute appearing comminuted fractures of the proximal right humerus which is now in near-anatomic alignment with reduction of prior posterior angulation along the oblique fracture involving the surgical neck and posterior aspect of the greater tuberosity. There is minimal amount of residual displacement. There appears to be early resorptive change in a few tiny bone fragments at the posterior margin of the fracture. No productive changes of healing yet apparent. No new fractures identified. Mild osteoarthritis at the right glenohumeral joint. Visualized portions of the right lung is clear. IMPRESSION: 1. 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 2. Subacute 1 part fracture of the proximal right humerus now in near-anatomic alignment Results of x-ray above no real changes patient was complaining of pain as needed medication to be administered
[2021-03-30] MEDS: LIDOCAINE 5% PATCH 2 PATCH TRANSDERM (09:23)
[2021-03-30] MEDS: ENOXAPARIN 40 MG/0.4 ML SYRINGE SUB-Q (09:23)
[2021-03-30] MEDS: FAMOTIDINE 20 MG TABLET PO ×2 (09:24→20:33)
[2021-03-30] MEDS: LORATADINE 10 MG TABLET PO (09:24)
[2021-03-30] MEDS: buPROPion HCL SR (12 HR) 150 MG TAB PO ×2 (09:24→20:33)
[2021-03-30] MEDS: amLODIPine BESYLATE 5 MG TABLET 10 MG PO (09:24)
[2021-03-30] MEDS: PRAVASTATIN SODIUM 20 MG TABLET PO (09:24)
[2021-03-30] MEDS: LOSARTAN POTASSIUM 50 MG TABLET PO (09:24)
[2021-03-30 09:25] VITALS: PULSE 77
[2021-03-30] MEDS: allopurinoL 100 MG TABLET PO (09:25)
[2021-03-30] MEDS: carvediloL 6.25 MG TABLET PO (09:25)
[2021-03-30] MEDS: ALPRAZolam (*CRX) 0.25 MG TABLET PO (09:26)
[2021-03-30 11:02] LABS: Glucose Point of Care 184 mg/dl (65-105)
[2021-03-30 11:03] LABS: Glucose Point of Care 421 mg/dl (65-105)
[2021-03-30 12:03] LABS: Glucose Point of Care 208 mg/dl (65-105)
[2021-03-30 16:00] VITALS: BP 102/53; PULSE 75; RESP 16; TEMP 36.8; O2SAT 96
[2021-03-30 16:45] LABS: Glucose Point of Care 133 mg/dl (65-105)
[2021-03-30] MEDS: MELATONIN 3 MG TABLET 6 MG PO (20:33)
[2021-03-30 22:31] LABS: Glucose Point of Care 226 mg/dl (65-105)
[2021-03-31] VITALS: BP 119/67; PULSE 78; RESP 20; TEMP 37.7; O2SAT 99
[2021-03-31 08:00] VITALS: BP 120/67; PULSE 80; RESP 14; TEMP 36.8; O2SAT 98
[2021-03-31 08:18] LABS: Glucose Point of Care 203 mg/dl (65-105)
[2021-03-31] MEDS: ALPRAZolam (*CRX) 0.25 MG TABLET PO (09:31)
[2021-03-31] MEDS: ENOXAPARIN 40 MG/0.4 ML SYRINGE SUB-Q (09:31)
[2021-03-31 09:32] VITALS: PULSE 80
[2021-03-31] MEDS: carvediloL 6.25 MG TABLET PO (09:32)
[2021-03-31] MEDS: FAMOTIDINE 20 MG TABLET PO ×2 (09:32→21:18)
[2021-03-31] MEDS: amLODIPine BESYLATE 5 MG TABLET 10 MG PO (09:32)
[2021-03-31] MEDS: LIDOCAINE 5% PATCH 2 PATCH TRANSDERM (09:33)
[2021-03-31] MEDS: LOSARTAN POTASSIUM 50 MG TABLET PO (09:33)
[2021-03-31] MEDS: allopurinoL 100 MG TABLET PO (09:33)
[2021-03-31] MEDS: PRAVASTATIN SODIUM 20 MG TABLET PO (09:33)
[2021-03-31] MEDS: LORATADINE 10 MG TABLET PO (09:33)
[2021-03-31] MEDS: buPROPion HCL SR (12 HR) 150 MG TAB PO ×2 (09:33→21:17)
[2021-03-31] MEDS: HYDROcodone/acetaminophen (*CRX) 5-325 MG TABLET 1 TAB PO ×2 (10:11→22:22)
[2021-03-31 16:00] VITALS: BP 122/77; PULSE 80; RESP 16; TEMP 36.8; O2SAT 98
[2021-03-31 16:50] LABS: Glucose Point of Care 145 mg/dl (65-105)
--- NOTE | 2021-03-31 21:15 | PC.NURSE ---
Pt sleeping, awakens easily, pt noted confused and unsure where he is and thinks his is in bed c him. Pt will follow all commands, pt changed of wet diaper and assists c rolling and turning. Call patel placed back at pt side c bed alarms on.
[2021-03-31] MEDS: MELATONIN 3 MG TABLET 6 MG PO (21:18)
[2021-03-31 21:24] LABS: Glucose Point of Care 297 mg/dl (65-105)
[2021-03-31 21:30] VITALS: O2SAT 96
[2021-04-01] VITALS: BP 121/87; PULSE 74; RESP 18; TEMP 36.9; O2SAT 96
--- NOTE | 2021-04-01 06:10 | PC.NURSE ---
Frequently trying to climb out of bed. Frequent reminders to stay in bed. Thinks he needs to go home and take care of his car. Reoriented, however short term memory is poor and unable to remember from one moment to the next where he is and why. Incontinent of urine and adult brief applied. Bed alarm on for safety.
[2021-04-01 07:30] LABS: Glucose Point of Care 211 mg/dl (65-105)
[2021-04-01] MEDS: ENOXAPARIN 40 MG/0.4 ML SYRINGE SUB-Q (07:52)
[2021-04-01] MEDS: LIDOCAINE 5% PATCH 2 PATCH TRANSDERM (07:52)
[2021-04-01 07:54] VITALS: PULSE 72
[2021-04-01] MEDS: amLODIPine BESYLATE 5 MG TABLET 10 MG PO (07:54)
[2021-04-01] MEDS: buPROPion HCL SR (12 HR) 150 MG TAB PO ×2 (07:54→20:36)
[2021-04-01] MEDS: allopurinoL 100 MG TABLET PO (07:54)
[2021-04-01] MEDS: carvediloL 6.25 MG TABLET PO (07:54)
[2021-04-01] MEDS: ALPRAZolam (*CRX) 0.25 MG TABLET PO (07:54)
[2021-04-01] MEDS: LOSARTAN POTASSIUM 50 MG TABLET PO (07:54)
[2021-04-01] MEDS: LORATADINE 10 MG TABLET PO (07:55)
[2021-04-01] MEDS: FAMOTIDINE 20 MG TABLET PO ×2 (07:55→20:36)
[2021-04-01] MEDS: PRAVASTATIN SODIUM 20 MG TABLET PO (07:55)
[2021-04-01 08:00] VITALS: BP 118/65; PULSE 72; RESP 16; TEMP 37.3; O2SAT 96
[2021-04-01 11:38] LABS: Glucose Point of Care 216 mg/dl (65-105)
[2021-04-01 16:00] VITALS: BP 107/56; PULSE 95; RESP 18; TEMP 37.1; O2SAT 95
[2021-04-01 16:57] LABS: Glucose Point of Care 184 mg/dl (65-105)
[2021-04-01] MEDS: IBUPROFEN 400 MG TABLET PO (20:35)
[2021-04-01] MEDS: MELATONIN 3 MG TABLET 6 MG PO (20:36)
[2021-04-01 20:45] LABS: Glucose Point of Care 251 mg/dl (65-105)
[2021-04-02] VITALS: BP 107/62; PULSE 77; RESP 14; TEMP 36.8; O2SAT 98
[2021-04-02 05:16] LABS: Hematocrit 37.9 % (37.0-46.0); Hemoglobin 12.7 g/dL (12.4-15.3); Mean Corpuscular HGB Conc 33.5 g/dL (32.0-36.0); Mean Corpuscular Hemoglobin 31.8 pg (27.0-31.0); Mean Platelet Volume 8.6 fl (8.7-11.0); Platelet Count Result 333 K/mm3 (150-420); Red Blood Count 3.99 M/mm3 (4.70-6.10); Red Cell Distribution Width 11.4 % (11.6-14.4)
[2021-04-02 05:34] LABS: Anion Gap 10 mmol/L (8-16); Blood Urea Nitrogen 21 mg/dL (7-18); Calcium 9.1 mg/dL (8.5-10.1); Carbon Dioxide 28 mmol/L (21-32); Chloride 99 mmol/L (98-108); Estimated CRCL calculation 38 ml/min; Estimated Glomerular Filt Rate 46; Glucose 205 mg/dL (70-99); Osmolality Calculated 293 mOsm/kg (285-295); Potassium 4.4 mmol/L (3.5-5.1); Sodium 137 mmol/L (136-145)
[2021-04-02 07:29] LABS: Glucose Point of Care 213 mg/dl (65-105)
[2021-04-02 07:39] VITALS: BP 120/73; PULSE 72; RESP 18; TEMP 36.7; O2SAT 95
[2021-04-02] MEDS: LIDOCAINE 5% PATCH 2 PATCH TRANSDERM (08:12)
[2021-04-02] MEDS: ENOXAPARIN 40 MG/0.4 ML SYRINGE SUB-Q (08:12)
[2021-04-02 08:13] VITALS: PULSE 72
[2021-04-02] MEDS: allopurinoL 100 MG TABLET PO (08:13)
[2021-04-02] MEDS: carvediloL 6.25 MG TABLET PO (08:13)
[2021-04-02] MEDS: amLODIPine BESYLATE 5 MG TABLET 10 MG PO (08:13)
[2021-04-02] MEDS: LORATADINE 10 MG TABLET PO (08:13)
[2021-04-02] MEDS: LOSARTAN POTASSIUM 50 MG TABLET PO (08:13)
[2021-04-02] MEDS: buPROPion HCL SR (12 HR) 150 MG TAB PO ×2 (08:13→20:35)
[2021-04-02] MEDS: FAMOTIDINE 20 MG TABLET PO ×2 (08:13→20:36)
[2021-04-02] MEDS: ALPRAZolam (*CRX) 0.25 MG TABLET PO (08:13)
[2021-04-02] MEDS: PRAVASTATIN SODIUM 20 MG TABLET PO (08:15)
[2021-04-02 11:52] LABS: Glucose Point of Care 212 mg/dl (65-105)
--- NOTE | 2021-04-02 11:56 | PC.NURSE ---
refuses lunch at this time, states tired and not hungry right now, advised to let us know when he wanted his lunch
--- NOTE | 2021-04-02 14:01 | PC.NURSE ---
Up to void, SBA with activity, tolerated well, good BM, able to do self pratik care
[2021-04-02 16:00] VITALS: BP 112/78; PULSE 74; RESP 20; TEMP 36.6; O2SAT 94
[2021-04-02 17:16] LABS: Glucose Point of Care 148 mg/dl (65-105)
[2021-04-02 20:34] LABS: Glucose Point of Care 216 mg/dl (65-105)
[2021-04-02] MEDS: HYDROcodone/acetaminophen (*CRX) 5-325 MG TABLET 1 TAB PO (20:36)
[2021-04-02] MEDS: MELATONIN 3 MG TABLET 6 MG PO (20:36)
[2021-04-02 23:59] VITALS: BP 117/74; PULSE 64; RESP 18; TEMP 37.4; O2SAT 97
[2021-04-03 07:48] LABS: Glucose Point of Care 179 mg/dl (65-105)
[2021-04-03 08:00] VITALS: BP 123/70; PULSE 79; RESP 14; TEMP 36.9; O2SAT 95
[2021-04-03] MEDS: amLODIPine BESYLATE 5 MG TABLET 10 MG PO (08:50)
[2021-04-03] MEDS: ENOXAPARIN 40 MG/0.4 ML SYRINGE SUB-Q (08:51)
[2021-04-03] MEDS: LIDOCAINE 5% PATCH 2 PATCH TRANSDERM (08:51)
[2021-04-03] MEDS: FAMOTIDINE 20 MG TABLET PO ×2 (08:52→20:51)
[2021-04-03] MEDS: HYDROcodone/acetaminophen (*CRX) 5-325 MG TABLET 1 TAB PO ×2 (08:52→17:50)
[2021-04-03] MEDS: PRAVASTATIN SODIUM 20 MG TABLET PO (08:52)
[2021-04-03] MEDS: LORATADINE 10 MG TABLET PO (08:53)
[2021-04-03] MEDS: allopurinoL 100 MG TABLET PO (08:53)
[2021-04-03] MEDS: LOSARTAN POTASSIUM 50 MG TABLET PO (08:53)
[2021-04-03 08:54] VITALS: PULSE 79
[2021-04-03] MEDS: carvediloL 6.25 MG TABLET PO (08:54)
[2021-04-03] MEDS: buPROPion HCL SR (12 HR) 150 MG TAB PO ×2 (08:54→20:51)
[2021-04-03] MEDS: ALPRAZolam (*CRX) 0.25 MG TABLET PO (08:54)
--- NOTE | 2021-04-03 14:19 | PC.NURSE ---
Pt did ambulate to the BR and shaved with minimal help. Pt did sink bath and did well. Pt continues to need the gait belt when moving or ambulating.
[2021-04-03 16:17] LABS: Glucose Point of Care 276 mg/dl (65-105)
[2021-04-03 16:30] VITALS: BP 121/66; PULSE 81; RESP 18; TEMP 37; O2SAT 99
[2021-04-03] MEDS: MELATONIN 3 MG TABLET 6 MG PO (20:52)
[2021-04-03 21:09] LABS: Glucose Point of Care 155 mg/dl (65-105)
[2021-04-04] VITALS: BP 124/70; PULSE 80; RESP 18; TEMP 36.6; O2SAT 99
[2021-04-04] MEDS: HYDROcodone/acetaminophen (*CRX) 5-325 MG TABLET 1 TAB PO (00:06)
[2021-04-04 08:00] VITALS: BP 126/75; PULSE 85; RESP 14; TEMP 36.3; O2SAT 98
[2021-04-04 08:23] LABS: Glucose Point of Care 205 mg/dl (65-105)
[2021-04-04] MEDS: ENOXAPARIN 40 MG/0.4 ML SYRINGE SUB-Q (09:26)
[2021-04-04] MEDS: LIDOCAINE 5% PATCH 2 PATCH TRANSDERM (09:27)
[2021-04-04 09:28] VITALS: PULSE 80
[2021-04-04] MEDS: ALPRAZolam (*CRX) 0.25 MG TABLET PO (09:28)
[2021-04-04] MEDS: amLODIPine BESYLATE 5 MG TABLET 10 MG PO (09:28)
[2021-04-04] MEDS: allopurinoL 100 MG TABLET PO (09:28)
[2021-04-04] MEDS: carvediloL 6.25 MG TABLET PO (09:28)
[2021-04-04] MEDS: buPROPion HCL SR (12 HR) 150 MG TAB PO (09:28)
[2021-04-04] MEDS: PRAVASTATIN SODIUM 20 MG TABLET PO (09:28)
[2021-04-04] MEDS: LORATADINE 10 MG TABLET PO (09:28)
[2021-04-04] MEDS: LOSARTAN POTASSIUM 50 MG TABLET PO (09:29)
[2021-04-04] MEDS: FAMOTIDINE 20 MG TABLET PO (09:29)
--- NOTE | 2021-04-04 09:58 | PM.DS ---
DS: Admitting Diagnosis Discharge Date 04/04/2021 Admitting Diagnosis Rehab DS: Discharge Diagnosis Discharge Diagnosis (1) Closed fracture of proximal end of right humerus: Qualifiers: Encounter type: initial encounter Fracture morphology: unspecified fracture morphology Qualified Code(s): S42.201A - Unspecified fracture of upper end of right humerus, initial encounter for closed fracture Code(s): S42.201A - Unspecified fracture of upper end of right humerus, initial encounter for closed fracture Status: Acute Assessment and Plan: Right arm sling at all times Pain medication as needed Patient will discharge to SNF (2) Hypertension: Qualifiers: Hypertension type: unspecified secondary hypertension Qualified Code(s): I15.9 - Secondary hypertension, unspecified Code(s): I10 - Essential (primary) hypertension Status: Chronic Assessment and Plan: Continue home medication (3) COVID: Code(s): U07.1 - COVID-19 Status: Acute Assessment and Plan: Droplet isolation completed (4) Diabetes: Qualifiers: Diabetes mellitus type: type 2 Diabetes mellitus terminal worker insulin use: unspecified terminal worker insulin use status Diabetes mellitus complication status: with other specified complication Qualified Code(s): E11.69 - Type 2 diabetes mellitus with other specified complication Code(s): E11.9 - Type 2 diabetes mellitus without complications Status: Chronic Assessment and Plan: Diabetic diet Continue home medication (5) Dementia: Qualifiers: Dementia type: unspecified type Dementia behavioral disturbance: without behavioral disturbance Qualified Code(s): F03.90 - Unspecified dementia without behavioral disturbance Code(s): F03.90 - Unspecified dementia without behavioral disturbance Status: Acute Assessment and Plan: DS: Summary Hospital Course Hospital Course: This is a 80-year-old male that presents to our hospital with a history of hypertension or diabetes he is alert oriented 2-3 with forgetfulness. Mr. Desai'komal has a right shoulder fracture no surgical interventions needed, He is required to wear a sling at all time that he takes off himself. Patient was admitted to our rehab due to his 's inability to care for him at home he does have a history of frequently falling.patient will discharge to [facility] SN[facility]. The patient denies SOB, CP, palpitation, extremity numbness, lightheadedness, dizziness, constipation, diarrhea, chills, or fever. Chief Complaint: Closed fracture of proximal end of right humerus, weakness and strength Time Spent with Patient Time attestation: Total time spent providing and/or coordinating discharge services: Exam Narrative: GENERAL:Well-appearing, well-nourished, and in no acute distress. HEAD:Normocephalic, EYES: PERRLA and EOMI. ENT: Nares clear Mucous membranes moist. CHEST: Clear to auscultation. No respiratory distress. HEART: Regular rate and rhythm. Normal peripheral pulses. ABDOMEN: Soft, nontender, normal active bowel sounds. EXTREMITIES: Decreased right arm range of motion which is in a sling bruising noted multiple stages of healing. No edema. SKIN: Warm, dry, no rash. Bruising noted multiple stages of healing NEURO: No focal deficits. Alert and oriented x3 at this time some confusion is noted sporadic DS: Data Data Completed and Pending Labs on day of discharge: Labs from last 24 hours 04/04/21 04/03/21 04/03/21 08:16 20:56 16:06 POC Capillary Glucose 205 H 155 H 276 H Discharge Plan Discharge Attending physician on discharge: Brandan Garrett Discharging Clinician: Hakan Hernadez Anticipated Discharge Date/Time: 04/04/21 09:36 Patient Disposition: SNF Activity: as tolerated Diet: diabetic Discharge Instructions: Follow up with primary care physician within 1-2 weeks
[2021-04-04 11:52] LABS: Glucose Point of Care 211 mg/dl (65-105)
--- NOTE | 2021-04-04 13:00 | PC.NURSE ---
[facility] does not have BLS truck available to transfer patient. Spoke with [facility], BLS truck available for transfer.
--- NOTE | 2021-04-04 13:52 | PC.NURSE ---
Discharge instructions faxed to Patricio Schmitt at [phone]
--- NOTE | 2021-04-04 15:28 | PC.NURSE ---
Pt discharged to [facility]. Pt taken by ambulance. VSS pt cooperative with transfer. RN called report to Yadi at [facility].
--- NOTE | 2021-04-05 15:48 | PC.NURSE ---
shelter states they received and understood the discharge instructions.
== END 2021-04-04 13:25 | DRG 559 ==
PROVIDERS: Nurse Practitioner; Nurse Practitioner Family; Admitting Provider Emergency Medicine; PCP Internal Medicine; Visit Provider Emergency Medicine
DX: S42.201D Unspecified fracture of upper end of right humerus, subsequent encounter for fracture with routine healing (principal); U07.1 COVID-19; I10 Essential (primary) hypertension; E11.9 Type 2 diabetes mellitus without complications; E78.5 Hyperlipidemia, unspecified; M10.9 Gout, unspecified; M19.90 Unspecified osteoarthritis, unspecified site; R29.6 Repeated falls; F41.9 Anxiety disorder, unspecified; F03.90 Unspecified dementia, unspecified severity, without behavioral disturbance, psychotic disturbance, mood disturbance, and anxiety; Z66 Do not resuscitate
CPT/HCPCS: 36415; 73030; 80048; 82948; 85027; 97110; 97161; 97165; 97530; 97535; A9270; J1650; J1815

== ENCOUNTER 2021-09-27 14:15 | Outpatient (CLI) | payer MEDICARE, SELFPAY ==
--- NOTE | 2021-09-27 | ECHO_ITS ---
Patient Info Name: Marcella Desai Age: 81 years : 1940 Gender: Male Ht: 69 in Wt: 174 lbs BSA: 1.97 m2 HR: 71 bpm BP: 154 / 95 mmHg Heart Rhythm: Sinus Rhythm Technical Quality: Good Exam Date: 09/27/2021 3:36 PM Exam Location: [facility] Patient Status: Outpatient Admit Date: 09/27/2021 Staff Ordering Physician: GilbertHarish MD Flanger: Anushka Garrett RDCS Attending Provider: Gilbert, Harish Shearer MD Referring Physician: Marcos AGUILAR; Exam Type: CA echo doppler color flow Study Info Indications - HTN Complete two-dimensional, color flow and Doppler transthoracic echocardiogram is performed. Summary 1. Complete two-dimensional, color flow and Doppler transthoracic echocardiogram is performed. 2. Normal left ventricular size with mild concentric hypertrophy. Good systolic function of all segments with no segmental wall motion abnormalities. Ejection fraction calculated to be 67%. Grade 1 diastolic dysfunction is present. 3. Borderline left atrial enlargement. 4. There is mild tricuspid valve regurgitation. 5. No pulmonary hypertension, estimated pulmonary arterial systolic pressure is 34 mmHg. 6. Probable sinus rhythm. Left Ventricle Left ventricular chamber dimension is normal. Left ventricular systolic function is normal, estimated at 60-65%. There is mildly increased left ventricular wall thickness. Left ventricular septal wall motion is normal. The left ventricular diastolic function is grade I diastolic dysfunction. Right Ventricle Right ventricular chamber dimension is normal. Right ventricular systolic function is normal. Left Atria Left atrial chamber dimension is mildly enlarged. Right Atria Right atrial chamber dimension is normal. Aortic Valve The aortic valve is trileaflet. There is mild aortic valve sclerosis. There is no aortic valve stenosis. There is no aortic valve regurgitation. Pulmonic Valve The pulmonic valve is normal. There is no pulmonic valve stenosis. There is trace pulmonic regurgitation. Mitral Valve The mitral valve has normal leaflets. There is no mitral valve stenosis. There is no mitral valve regurgitation. Tricuspid Valve The tricuspid valve leaflets are normal. There is no significant tricuspid valve stenosis. There is mild tricuspid valve regurgitation. No pulmonary hypertension, estimated pulmonary arterial systolic pressure is 34 mmHg. Pericardium/Pleural The pericardium appears normal. There is no pericardial effusion. Inferior Vena Cava Normal inferior vena cava with >50% collapse upon inspiration consistent with Empty right atrial pressure, 10 mmHg. Aorta The aortic root size at the sinus of Valsalva is normal. The prox ascending aorta size is normal. Left Ventricular Outflow Tract Name Value Normal LVOT 2D LVOT Diameter 2.0 cm LVOT Doppler LVOT Peak Gradient 5 mmHg LVOT Mean Gradient 2 mmHg LVOT VTI 20 cm LVOT VTI/AV VTI Ratio 0.9 LVOT Stroke
--- NOTE | 2021-09-27 15:02 | ECG_ITS ---
Measurements Intervals [place] Rate: 68 P: 48 MS: 197 QRS: -46 QRSD: 120 T: 102 QT: 383 QTc: 408 Interpretive Statements SINUS RHYTHM LEFT ANTERIOR FASCICULAR BLOCK [QRS AXIS <= -45, QR IN I, RS IN II] NONSPECIFIC T-WAVE ABNORMALITY NO PREVIOUS ECG AVAILABLE FOR COMPARISON Electronically Signed On 09-28-2021 16:24:03 CDT by Lian Soto M.D.
== END 2021-09-27 14:16 | disposition home or self-care (01) ==
PROVIDERS: PCP Internal Medicine; Visit Provider Internal Medicine
DX: I10 Essential (primary) hypertension (principal); R94.31 Abnormal electrocardiogram [ECG] [EKG]
CPT/HCPCS: 93005; 93306

== ENCOUNTER 2023-05-22 12:11 | Outpatient (CLI) | payer MEDICARE, SELFPAY ==
--- NOTE | ~2023-05-22 | DEXA_ITS ---
Bone Density Report Name: BAUDILIO KENDALL Age: 83 Sex: Male Ethnicity: White Date of : 1940 Indication: screening for osteoporosis; history of glucocorticoids; prior fracture; Referring Provider: ETHAN HANSEN Study: Bone densitometry was performed. Exam Date: May 22, 2023 Accession number: [id number] Bone Density: Region BMD T-score Z-score Classification AP Spine (L1-L4) 1.038 -0.5 0.7 Normal Femoral Neck (Left) 0.744 -1.4 0.2 Osteopenia Total Hip (Left) 0.861 -1.1 0.0 Osteopenia Femoral Neck (Right) 0.653 -2.0 -0.4 Osteopenia Total Hip (Right) 0.858 -1.2 0.0 Osteopenia Total Hip Mean 0.860 -1.2 0.0 Osteopenia World Health Organization criteria for BMD impression classify patients as: Normal (T-score at or above -1.0), Osteopenia (T-score between -1.0 and -2.5), or Osteoporosis (T-score at or below -2.5). 10-year Fracture Risk(1): Major Osteoporotic Fracture 18% Hip Fracture 8.0% Reported Risk Factors: [place] (), Neck BMD=0.653, BMI=24.9, previous fracture, glucocorticoids (1) FRAX(R) Version 3.08. Fracture probability calculated for an untreated patient. Fracture probability may be lower if the patient has received treatment. Clinical Information Provided by Patient: Has had a low trauma fracture Has taken Glucocorticoids Patient maximum height was 69 No regular weight bearing exercise Does not regularly consume dairy products Drinks caffeinated beverages Impression: The patient has low bone mass, based on the Right Femoral Neck T-score. The patient has an estimated ten-year risk of hip fracture of 8% and an estimated ten-year risk of major fracture of 18%, based on the WHO FRAX algorithm. The patient has risk factors, including: previous fracture, history of glucocorticoid therapy. Discussion: BONE DENSITY IS LOW AT ONE OR MORE SKELETAL SITES. THE PATIENT'S BMD AND CLINICAL RISK FACTORS CONTRIBUTE TO THIS PATIENT'S INCREASED RISK OF FRACTURE. This patient's lowest T-score is low at one or more skeletal sites. It meets the World Health Organization's (WHO) criteria for ?low bone mass? (T-score between -1.0 and -2.5). The patient's 10-year risk of hip fracture as calculated by FRAX exceeds the threshold where pharmacological therapy is recommended by the National Osteoporosis Foundation (NOF). However, all treatment decisions require clinical judgment and consideration of individual patient factors, including patient preferences, comorbidities, previous drug use, risk factors not captured in the FRAX model (e.g., frailty, falls, vitamin D deficiency, increased bone turnover, interval significant decline in bone density) and possible under or overestimation of fracture risk by FRAX. The patient should follow a healthful lifestyle (good nutrition with adequate calcium and
== END 2023-05-22 12:12 ==
DX: M81.0 Age-related osteoporosis without current pathological fracture (principal); M85.852 Other specified disorders of bone density and structure, left thigh; M85.851 Other specified disorders of bone density and structure, right thigh
CPT/HCPCS: 77080

== ENCOUNTER 2024-09-20 10:28 | Emergency (ER) | payer MEDICARE, SELFPAY ==
--- OUTSIDE RECORDS SUMMARY | 2024-09-20 10:32 | XMS_ITS | Clinical Summary ---
Author Organization [facility] [address] Address [address] [place] [address] Care Team Providers Care Senior Project Accountant Name Role Phone Marcos Declan Luis MD Primary Care Provider [phone] Allergies No known active allergies Medications allopurinoL (ZYLOPRIM) 100 mg tablet Take 1 tablet (100 mg total) by mouth daily 1 Active ALPRAZolam (XANAX) 0.25 mg tablet Take 1 tablet (0.25 mg total) by mouth 3 (three) times a day as needed for anxiety 1 Active amLODIPine (NORVASC) 10 mg tablet Take 1 tablet (10 mg total) by mouth daily 1 Active glipiZIDE (GLUCOTROL) 5 mg tablet Take 1 tablet (5 mg total) by mouth once Active fluticasone propionate (FLONASE) 50 mcg/actuation nasal spray Administer 2 sprays into each nostril daily 8 Active metFORMIN (GLUCOPHAGE) 500 mg tablet Take 1 tablet (500 mg total) by mouth 2 (two) times a day with meals 5 Active pravastatin (PRAVACHOL) 20 mg tablet Take 1 tablet (20 mg total) by mouth daily 5 Active predniSONE (DELTASONE) 2.5 mg tablet Take 2 tablets (5 mg) by mouth daily Active famotidine (PEPCID) 20 mg tablet Take 2 tablets (40 mg total) by mouth 2 (two) times a day 120 tablet 1 04/02/202 5 Active pancrelipase (Zenpep) 40,000-126,000- 168,000 unit per capsuleIndication s:exocrine pancreatic insufficiency Take 1 capsule by mouth 3 (three) times a day with meals TAKE IT DURING BREAKFAST LUNCH AND DINNER 90 capsule Active Surgical History Surgery Date Site/Laterality Comments COLONOSCOPY Medical History Medical History Date Comments GERD (gastroesophageal reflux disease) Irritable bowel syndrome Hypertension Hyperlipidemia Type 2 diabetes mellitus Arthritis Social History Tobacco Use Types Packs/Day Years Used Date Smoking Tobacco: Former Cigarettes Q uit: 1979 Tobacco Cessation:Counseling Given: Not Answered AUDIT-C Answer Date Recorded Q1: How often do you have a drink containing alcohol? Never 05/22/2024 Q2: How many drinks containi ng alcohol do you have on a typical day when you are drinking? Patient does not drink Q3: How often do you have si x or more drinks on one occasion? Never 05/22/2024 Personal Safety Answer Date Recorded Have you ever been in or are you currently in a harmful physical or emotional relationship or is someone making you feel afraid or unsafe? 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 Gender Identity Not on file Sexual Orientation Not on file Obstetrics History Last Filed Vital Signs Vital Sign Reading Time Taken Comments Blood Pressure 138/81 05/22/2024 9:35 AM CDT Pulse 67 05/22/2024 9:35 AM CDT Temperature 36 C (96.8 F) 05/22/2024 8:23 AM CDT Respiratory Rate 12 05/22/2024 9:35 AM CDT Oxygen Saturation 97% 05/22/2024 9:35 AM CDT Inhaled Oxygen Concentration - - Weight 72.6 kg (160 lb) 05/22/2024 8:23 AM CDT Height 175.3 cm (5' 9) 05/22/2024 8:23 AM CDT Body Mass Index 23.63 05/22/2024 8:23 AM CDT Plan of Treatment Health Maintenance Due Date Last Done Comments Depression Screening 1940 Hepatitis B Screening 1958 Well Visit 65+ 2006 Covid-19 Vaccine (6 2023- 5 season) 2024 11/30/2023, 12/12/2022, 12/23/2021, Additional history exists Influenza Vaccine (#1) 2024 , 01/04/2023, 12/23/2021, Additional history exists Fall Risk Assessment 05/22/2025 05/22/2024 DTaP/Tdap/Td Vaccine (2 - Td or Tdap) 03/14/2030 03/14/2020 Pneumococcal vaccine 65+ Completed 023, 06/10/2015, 01/03/2012 Zoster Vaccine Completed 06/01/2023, 12/23, 02/21/2000 Insurance MEDICARE [facility] MEDICARE [facility] MEDICARE SUPPLEMENT Advance Directives For more information, please contact: [phone] * Full Code (Latest Code Status on File) Date Activated Date Inactivated Comments 05/22/2024 8:16 AM 05/22/2024 1:52 PM Care Teams Senior Project Accountant Relationship Specialty Start Date End Date Declan Rodríguez MD PCP - General Internal Medicine 07/17/18
--- OUTSIDE RECORDS SUMMARY | 2024-09-20 10:32 | XMS_ITS | Referral Summary ---
Author Organization [facility] [address] Address [address] [place] [address] Care Team Providers Care City Wellness Coordinator Name Role Phone Marcos Declan Luis MD Primary Care Provider [phone] Allergies No known active allergies Medications allopurinoL [...] (two) times a day 120 tablet 1 5 Active pancrelipase (Zenpep) 40,000-126,000- 168,000 unit per capsuleIndication s:exocrine pancreatic insufficiency Take 1 capsule by mouth 3 (three) times a day with meals TAKE IT DURING BREAKFAST LUNCH AND DINNER 90 capsule 5 Active Social History Tobacco Use Types Packs/Day Years Used Date Smoking Tobacco: Former Cigarettes Q uit: 1980 Tobacco Cessation:Counseling Given: Not Answered AUDIT-C Answer [...] on file 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
--- OUTSIDE RECORDS SUMMARY | 2024-09-20 10:32 | XMS_ITS | Encounter Summary ---
Author Organization [facility] Address [address] [place], [place] [address] [address] Care Team Providers Care Transmitter Operator Name Role Phone Declan Rodríguez MD Primary Care Provider [phone] Shahrzad Resendiz MD Unavailable [phone] Encounter Details Date Type Department Care Team (Late st Contact Info) Description 09/28/2022 Lab Requisition [facility] - DermPath Lab [address] [place] [id number] Jose L Jolly MD [address] [place] [address] Social History Tobacco Use Types Packs/Day Years Used Date Smoking Tobacco: Former Cigarettes Q uit: 06/26/1987 Smokeless Tobacco: Never Alcohol Use Standard Drinks/Week Comments Yes 4.2 (1 standard drink = 0.6 oz p ure alcohol) Sex and Gender Information Value Date Recorded Sex Assigned at Not on file 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 Author Blood Pressure < 140/90 Blood Pressure 120/76(2022 11:28 AM CDT) No Sharon Anaya documented as of this encounter Procedures Procedure Name Priority Date/Time Associated Diagnosis Comments DERMATOPATHOLOGY Routine 09/27/2022 12:0 0 AM CDT documented in this encounter Results * DERMATOPATHOLOGY (09/27/2022 12:00 AM CDT) Case Report Dermatopathology Report Case: [id number] Authorizing Provider: Jose L Jolly MD Collected: 09/27/2022 12:00 AM Ordering Location: [facility] Received: 09/28/2022 03:36 PM Pathologist: Aniya Aldrich MD Specimen: Skin, right post auric neck 3 2:44 PM CDT DERMATOPATHOLOGY LABORATORY Final Diagnosis Specimen A. SKIN, right post auric neck: BASAL CELL CARCINOMA, NODULAR TYPE (C44.41) 3 2:44 PM CDT DERMATOPATHOLOGY LABORATORY at 1444 CDT Clinical History R/O BCC 3 2:44 PM CDT DERMATOPATHOLOGY LABORATORY Gross Description Specimen A: Received is one formalin filled container labeled with the patient's name and designated right post auric neck. The specimen consists of a shave biopsy measuring 10x8x3 mm. Jar 0. 2:44 PM CDT DERMATOPATHOLOGY LABORATORY Microscopic Description Specimen A. SKIN, right post auric neck: Within the dermis there are aggregates of basaloid cells with a high nuclear to cytoplasmic ratio and peripheral palisading. 3 2:44 PM CDT DERMATOPATHOLOGY LABORATORY Disclaimer An external and internal positive and negative controls are appropriate for the histochemical, immunohistochemical and immunofluorescence stain(s) in this case (if any), except where stated explicitly. The performance characteristics of the stain(s) cited in this report were developed and its performance characteristic determined by the Dermatopathology Laboratory at [facility], directed by Dr. Jaime Vidal. These tests need not be, and therefore are not, approved by the [place] Food and Drug Administration. The tests are used for clinical purposes. Billing Codes Specimen Charges Stain Charges 03649 1 3 2:44 PM CDT DERMATOPATHOLOGY LABORATORY Embedded Images 3 2:44 PM CDT DERMATOPATHOLOGY LABORATORY Pathology/Cytolog y TISSUE SPECIMEN FROM SKIN / Unknown 09/27/2022 09/28/2022 3:36 PM CDT us Jose L Jolly MD LAB - PATHOLOGY/CYTOLOGY ORDERAB LES Final Result DERMATOPATHOLOGY LABORATORY [facility] - Department of Dermatology [facility] Medicine [address] [place] [address], [address] [phone] documented in this encounter Visit Diagnoses Not on filedocumented in this encounter Care Teams Transmitter Operator Relationship Specialty Start Date End Date Declan Rodríguez MD PCP - General Internal Medicine 03/10/15 Shahrzad Resendiz [place] [address] [place] [id number] Pulmonary Disease 06/29/15 documented as of this encounter
--- OUTSIDE RECORDS SUMMARY | 2024-09-20 10:33 | XMS_ITS | Clinical Summary ---
Author Organization [facility] Address [address] [place] [address] [place] [address] Care Team Providers Care District Home Economics Agent Name Role Phone Declan Rodríguez MD Primary Care Provider [phone] Shahrzad Resendiz MD Unavailable [phone] [facility],non-owned Affiliates and Associated Physician Practices is amultiple site organization consisting of ambulatory clinics and hospital sitesin [place], [place], [place] and [place]. This disclosure is being madepursuant to the Care Everywhere program and may not contain all information available regarding this patient. Last updated 17.[facility] [employer] Allergies No known active allergies Medications * Be aware that medications may not be up to date on this document. Alwaysverify current medications with the patient. lancets Use 1 Each once daily Diagnosis 250.00 100 Each 3 8 Active blood glucose (ONETOUCH ULTRA TEST STRIPS) test strip USE ONE STRIP TO CHECK GLUCOSE ONCE DAILY diagnosis E11.9, non insulin dependent 100 strip 1 8 Active fluticasone propionate (FLONASE) 50 MCG/ACT nasal spray 0 8 Active amLODIPine (NORVASC) 10 MG tablet Take 1 tablet by mouth once daily 90 tablet 8 Active allopurinol (ZYLOPRIM) 100 MG tablet Take 1 tablet by mouth once daily 30 tablet 1 9 Active cyanocobalamin (VITAMIN B-12) injection Inject 1,000 (one thousand) mcg into muscle every 30 days 1 Active cyanocobalamin (VITAMIN B-12) 1000 MCG tablet Take 1 (one) tablet by mouth once daily 30 tablet 1 Active ALPRAZolam (XANAX) 0.25 MG tablet 1 Active glipiZIDE (GLUCOTROL) 5 MG tablet 1 Active predniSONE (Deltasone) 2.5 MG tablet Take 2 (two) tablets by mouth once daily 3 Active Cetirizine HCl (ZYRTEC ALLERGY PO) Active Probiotic Product (PROBIOTIC PO) Activ e amantadine (Symmetrel) 100 MG tabletIndicatio ns:MCI (mild cognitive impairment) with memory loss Take 1 (one) tablet by mouth once daily 30 tablet 3 Active donepezil (Aricept) 10 MG tabletIndicatio ns:MCI (mild cognitive impairment) with memory loss Take 1 (one) tablet by mouth once daily 90 tablet 4 3 Active Active Problems Problem Noted Date Diagnosed Date Altered mental status 03/17/2020 MICHAEL (obstructive sleep apnea) 09/14/2017 Type 2 diabetes mellitus wit h stage 3 chronic kidney disease 03/03/2016 CKD (chronic kidney disease) stage 3, GFR 30-59 ml/min 04/14/2014 Overview (09/12/2017): GFRs since 2011 Gout 09/24/2012 Overview (11/05/2012): 11/05/2012 has clinical features of gout but normal Uric acid and so far no synovial fluid confirmation the plan is pulse dose prednisone PRN Will consider RA in the differential diagnosis CONRADO (generalized anxiety disorder) Hyperlipidemia GERD (gastroesophageal reflux disease) History of basal cell cancer Overview (01/03/2012): Dr Jolly in [place], [place] Hypertension Resolved Problems Problem Noted Date Diagnosed Date Resolved Date AAA (abdominal aortic aneurysm) 06/25/2012 03/14/2017 IFG (impaired fasting glucose) 01/23/2012 03/14/2017 IFG (impaired fasting glucose) 01/23/2012 09/14/2017 Rotator cuff syndrome 01/03/20122017 HTN w/CKD 03/14/2017 Immunizations Immunization Administration Dates Next Due PNEUMOCOCCAL PPSV23 01/03/2012 Pneumococcal Pcv13 Conj 06/10/2015 TDAP (7yrs+) 03/14/2020 ZOSTER VACCINE, LIVE 02/21/2000 Family History Medical History Relation Name Comments Heart Disease Father Hypertension Father Cancer - Skin, Non Melanoma Mother Relation Name Status Comments Father Mother Social History Tobacco Use Types Packs/Day Years Used Date Smoking Tobacco: Former Cigarettes Q uit: 06/26/1987 Smokeless Tobacco: Never Alcohol Use Standard Drinks/Week Comments Yes 4.2 (1 standard drink = 0.6 oz p ure alcohol) Sex and Gender Information Value Date Recorded Sex Assigned at Not on file 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 Gender Identity Not on file Sexual Orientation Not on file Occupation Industry Job Start Date Job End Date works for [employer] Not on carri e Not on file Not on file Last Filed Vital Signs Vital Sign Reading Time Taken Comments Blood Pressure 120/76 12/12/2022 11:28 AM CDT Pulse 83 03/18/2020 11:40 AM PRICING LEAD Temperature 36.6 C (97.9 F) 03/18/2020 11:40 AM PRICING LEAD Respiratory Rate 18 03/18/2020 11:40 AM PRICING LEAD Oxygen Saturation 96% 03/18/2020 11:40 AM PRICING LEAD Inhaled Oxygen Concentration 96% 06/28/2016 9 :26 AM CDT room air Weight 79.8 kg (176 lb) 12/12/2022 11:28 AM CDT Height 176.5 cm (5' 9.5) 12/12/2022 11:28 AM CD T Body Mass Index 25.62 12/12/2022 11:28 AM CDT Plan of Treatment Health Maintenance Due Date Last Done Comments DIABETES-STATIN 1981 ZOSTER VACCINE (2 of 3) 04/17/2000 02/21/2000 DIABETES RETINOPATHY SCREENING 11/21/2014 DIABETES-FOOT EXAM WITH MONOFILAMENT 11/21/2014 Respiratory Syncytial Virus (RSV) Vaccine Pt: or over 60 yrs (1 - 1-dose 75+ series) 2016 MEDICARE AWV 12 MONTHS 03/08/2017 03/08/2016 DIABETES-HGB A1C 10/21/2017 04/20/2017, , 03/08/2016, Additional history exists DIABETES-SERUM CREATININE 05/19/20212020, 03/17/2020, 03/14/2020, Additional history exists COVID-19 VACCINE (1 - 2023- season) 2023 DEPRESSION SCREENING 02/21/2024 DIABETES - URINE PROTEIN SCREENING 02/21/2024 04/20/2017, 03/08/2016, 11/21/2014, Additional history exists INFLUENZA VACCINE (#1) 2024 DTAP/TDAP/TD VACCINES (2 - Td or Tdap) 03/14/2030 03/14/2020 PNEUMOCOCCAL VACCINE 50+ Completed 06/10/2015, 12/21 HEPATITIS B VACCINE Aged Out No longe r eligible based on patient's age to complete this topic HIB VACCINE Aged Out No longer eligi ble based on patient's age to complete this topic HPV VACCINE Aged Out No longer eligi ble based on patient's age to complete this topic MENINGOCOCCAL (Group B) VACCINE SHARED DECISION-MAKING Aged Out No longer eligible based on patient's age to complete this topic MENINGOCOCCAL GROUPS A/C/Y/W VACCINE Aged Out No longer eligible based on patient's age to complete this topic Goals Goal Patient Goal Type Associated Problems Recent Progress Patient-Stated? Author Blood Pressure < 140/90 Blood Pressure 120/76(2022 11:28 AM CDT) No Sharon Anaya Procedures Procedure Name Priority Date/Time Associated Diagnosis Comments COMPREHENSIVE METABOLIC PANEL STAT 03/17/2020 2:34 AM PRICING LEAD MICROALB/CREAT RATIO URINE RANDOM PANEL 04/20/2017 10:47 AM PRICING LEAD HEMOGLOBIN A1C 04/20/2017 10:47 AM PRICING LEAD from Last 3 Months or Most Recently Relevant to Health Maintenance Results * (ABNORMAL) COMPREHENSIVE METABOLIC PANEL (03/17/2020 2:34 AM PRICING LEAD) Glucose 239(H) 70 - 105 mg/dL 03/17/2020 3:01 AM PRICING LEAD [facility] Sodium 137 136 - 145 mmol/L 03/17/2020 3:01 AM PRICING LEAD [facility] Potassium 3.8 3.5 - 5.1 mmol/L 03/17/2020 3:01 AM PRICING LEAD [facility] Chloride 102 98 - 107 mmol/L 03/17/2020 3:01 AM PRICING LEAD [facility] CO2 23 23 - 31 mmol/L 03/17/2020 3:01 AM [facility] Calcium 9.5 8.4 - 10.4 mg/dL 03/17/2020 3:01 AM [facility] Anion Gap 12 8 - 18 mmol/L 03/17/2020 3:01 AM [facility] Comment:Attention clinician: Reference Range change. BUN 16 8.4 - 25.7 mg/dL 03/17/2020 3:01 AM [facility] Creatinine 1.56(H) 0.72 - 1.25 mg/dL 03/17/2020 3:01 AM [facility] Alkaline Phosphatase 79 40 - 150 U/L 03/17/2020 3:01 AM [facility] Comment:Attention clinician: Reference Range change. ALT 13 0 - 61 U/L 03/17/2020 3:01 AM [facility] AST 18 5 - 34 U/L 03/17/2020 3:01 AM [facility] Protein Total 8.1 6.4 - 8.3 gm/dL 03/17/2020 3:01 AM [facility] Albumin 4.7(H) 3.2 - 4.6 gm/dL 03/17/2020 3:01 AM [facility] Bilirubin Total 2.1(H) 0.2 - 1.2 mg/dL 03/17/2020 3:01 AM [facility] Comment:Attention clinician: Reference Range change. eGFR by MDRD 43 mL/min/1.7 3m2 03/17/2020 3:01 AM [facility] eGFR by MDRD 52 mL/min/1.7 3m2 03/17/2020 3:01 AM [facility] Blood BLOOD SPECIMEN / Unknown Venipuncture / Unknown 03/17/2020 2:34 AM PRICING LEAD 03/17/2020 2:39 AM [facility] Adalid Winters RECRUITMENT AND OUTREACH ASSISTANT-VARNISH MAKER HELPER LAB - CHEMISTRY ORDERABLE S Final Result [facility] [address] [place] [address] * MICROALB/CREAT RATIO URINE RANDOM PANEL (04/20/2017 10:47 AM PRICING LEAD) Creatinine Urine 220 20 - 370 mg/dL [facility] Microalbumin Urine 0.8 mg/dL [facility] Comment: Reference Range Not established Microalbumin/Creat inine Ratio 4 <30 mcg/mg creat [facility] Comment: The ADA defines abnormalities in albumin excretion as follows: Category Result (mcg/mg creatinine) Normal <30 Microalbuminuria 30-299 Clinical albuminuria > OR = 300 The ADA recommends that at least two of three specimens collected within a 3-6 month period be abnormal before considering a patient to be within a diagnostic category. Test Performed at: [facility] [place] [id number] VENESSA GARRETT DO,MPH 04/20/2017 10:4 7 AM PRICING LEAD 04/20/2017 10:47 AM PRICING LEAD Declan Rodríguez MD LAB - URINE CHEMISTRY ORDERABLES Final Result [facility] [address] [place] [address] * (ABNORMAL) HEMOGLOBIN A1C (04/20/2017 10:47 AM PRICING LEAD) Hemoglobin A1c 6.4(H) <5.7 % of total Hgb [facility] Comment: For someone without known diabetes, a hemoglobin A1c value between 5.7% and 6.4% is consistent with prediabetes and should be confirmed with a follow-up test. For someone with known diabetes, a value <7% indicates that their diabetes is well controlled. A1c targets should be individualized based on duration of diabetes, age, comorbid conditions, and other considerations. This assay result is consistent with an increased risk of diabetes. Currently, no consensus exists regarding use of hemoglobin A1c for diagnosis of diabetes for children. REPORT COMMENT: FASTING:YES Test Performed at: [facility] [place] [id number] VENESSA GARRETT DO,MPH 04/20/2017 10:4 7 AM PRICING LEAD 04/20/2017 10:47 AM PRICING LEAD Declan Rodríguez MD LAB - CHEMISTRY ORDERABLES Final Result [facility] [address] [place] [address] from Last 3 Months or Most Recently Relevant to Health Maintenance Insurance [facility] MEDICARE Advance Directives * Full Code (Latest Code Status on File) Date Activated Date Inactivated Comments 03/17/2020 7:49 AM 03/18/2020 4:32 PM * Full Code Date Activated Date Inactivated Comments 03/17/2020 6:58 AM 03/17/2020 7:49 AM Care Teams District Home Economics Agent Relationship Specialty Start Date End Date Declan Rodrígeuz MD PCP - General Internal Medicine 03/10/15 [place] [id number] [address] Pulmonary Disease 06/29/15
--- OUTSIDE RECORDS SUMMARY | 2024-09-20 10:33 | XMS_ITS ---
Author Organization [facility] Care Team Providers Care Reinforcing Iron And Rebar Workers Name Role Phone Violette Merino Unavailable Unavailable Susan Powell Unavailable Unavailable Allergies and adverse reactions No Known Allergies Care Team Name Role Address Phone Organization Dates Violette Merino PCP [address] [place], [address], [place] (Office): : [facility] 04/04/2021 - 04/23/2021 Susan Powell [address] [place], [address], [place]Office[place] : [facility] 04/04/2021 - 04/23/2021 Mental Status Section Date Assessment Total Score Description 04/23/2021 BIMS 08 moderate cognit melissa impairment CAM 0 No delirium ind icated PHQ-9 09 mild depression 04/09/2021 BIMS 10 moderate cognit melissa impairment CAM 0 No delirium ind icated PHQ-9 08 mild depression Problems Problem # Description Date of onset Resolved Date Code CodeSystem Concern Status 1 ANXIETY DISORDER, UNSPECIFIED 04/04/[address] active 2 COVID-19 04/04/[address] active 3 ESSENTIAL (PRIMARY) HYPERTENSION 04/04/[address] active 4 HISTORY OF FALLING 04/04/[address] active 5 HYPERLIPIDEMIA, UNSPECIFIED 04/04/[address] active 6 IDIOPATHIC GOUT, UNSPECIFIED SITE 04/04/[address] active 7 PRIMARY OSTEOARTHRITIS, UNSPECIFIED SITE 04/04/[address] active 8 SECONDARY HYPERTENSION, UNSPECIFIED 04/04/[address] active 9 TYPE 2 DIABETES MELLITUS WITHOUT COMPLICATIONS 04/04/[address] active 10 UNSPECIFIED DEMENTIA, UNSPECIFIED SEVERITY, WITHOUT BEHAVIORAL DISTURBANCE, PSYCHOTIC DISTURBANCE, MOOD DISTURBANCE, AND ANXIETY 04/04/[address] active 11 UNSPECIFIED FRACTURE OF UPPER END OF RIGHT HUMERUS, SUBSEQUENT ENCOUNTER FOR FRACTURE WITH ROUTINE HEALING 04/04/[address] active Reason for Referral No Reasons for Referral Entered Social History Social History Observation Description Start Date End Date Code Code System Current Smoking Status Tobacco smoking consumption unknown 417927354 SNOMED CT Sex Assigned At Male 1940 [address]-6 [facility] Gender Identity Vital Signs Code Code System Vitals Name Values and Units Timing Information 2339-0 [facility] Blood Sugar Gbuvs=917.0 Units=mg/dL 04/23/2021 10135-4 [facility] Pain Level Value=0.0 04/23/2021 9279-1 [facility] Respiratory Rate Value=18.0 Units=/m in 04/22/2021 8462-4 [facility] Blood Pressure-Diastolic Value=75 Un its=mmHg 04/22/2021 8480-6 [facility] Blood Pressure-Systolic Yrerv=657 Un its=mmHg 04/22/2021 8867-4 [facility] Heart rate Value=68.0 Units=/min 04/2021 88544-7 [facility] O2 % BldC Oximetry Value=97.0 Units= % 04/22/2021 8310-5 [facility] Body Temperature Value=97.8 Units= F 04/22/2021 8302-2 [facility] Height Value=65.0 Units=Inches 04/16/2021 88997-9 [facility] Weight Ckkan=062.0 Units=Lbs
--- OUTSIDE RECORDS SUMMARY | 2024-09-20 10:33 | XMS_ITS | Encounter Summary ---
Author Organization [facility] Health Address [address] [place], [place] [address] [address] Care Team Providers Care Repairer Shoe Sticks Name Role Phone Declan Rodríguez MD Primary Care Provider [phone] Shahrzad Resendiz MD Unavailable [phone] Encounter Details Date Type Department Care Team (Late st Contact Info) Description 10/22/2019 [facility] Unknown, Provider Social History Tobacco Use Types Packs/Day Years Used Date Smoking Tobacco: Former Cigarettes Q uit: 06/26/1987 Smokeless Tobacco: Never Alcohol Use Standard Drinks/Week Comments Yes 4.2 (1 standard drink = 0.6 oz p ure alcohol) Sex and Gender Information Value Date Recorded Sex Assigned at Not on file Legal Sex Male 2:16 PM [employer] Gender Identity Not on file Sexual Orientation Not on file Occupation Industry Job Start Date Job End Date works for [employer] Not on carri e Not on file Not on file COVID-19 Exposure Response Date Recorded In the last month, have you been in contact with someone who was confirmed or suspected to have Coronavirus / COVID-19? No / Unsure 10/14/2019 1:03 PM CDT documented as of this encounter Plan of Treatment Not on file documented as of this encounter Goals Goal Patient Goal Type Associated Problems Recent Progress Patient-Stated? Author Blood Pressure < 140/90 Blood Pressure 120/76(2022 11:28 AM CDT) No Sharon Anaya documented as of this encounter Visit Diagnoses Not on filedocumented in this encounter Care Teams Repairer Shoe Sticks Relationship Specialty Start Date End Date Declan Rodríguez MD PCP - General Internal Medicine 03/10/15 Shahrzad Resendiz MD [id number] [place], [place] [id number] Pulmonary Disease 06/29/15 documented as of this encounter
--- OUTSIDE RECORDS SUMMARY | 2024-09-20 10:34 | XMS_ITS ---
Author Organization [facility] Care Team Providers Care Importer Exporter Name Role Phone Violette Merino Unavailable Unavailable Susan Powell Unavailable Unavailable Allergies and adverse reactions No Known Allergies Care Team Name Role Address Phone Organization Dates Violette Merino PCP [address] [place], [address], [place] (Office): : [facility] 04/04/2021 - 04/23/2021 Susan Powell [address] [place], [address], [place] (Office[place] : [facility] 04/04/2021 - 04/23/2021 Mental Status Section Date Assessment Total Score Description 04/23/2021 BIMS 08 moderate cognit melissa impairment CAM 0 No delirium ind icated PHQ-9 09 mild depression 04/09/2021 BIMS 10 moderate cognit melissa impairment CAM 0 No delirium ind icated PHQ-9 08 mild depression Problems Problem # Description Date of onset Resolved Date Code CodeSystem Concern Status 1 ANXIETY DISORDER, UNSPECIFIED 04/04/[address] active 2 COVID-19 04/04/[address] active 3 ESSENTIAL (PRIMARY) HYPERTENSION 04/04/[address] active 4 HISTORY OF FALLING 04/04/[address] active 5 HYPERLIPIDEMIA, UNSPECIFIED 04/04/[address] active 6 IDIOPATHIC GOUT, UNSPECIFIED SITE 04/04/[address] active 7 PRIMARY OSTEOARTHRITIS, UNSPECIFIED SITE 04/04/[address] active 8 SECONDARY HYPERTENSION, UNSPECIFIED 04/04/[address] active 9 TYPE 2 DIABETES MELLITUS WITHOUT COMPLICATIONS 04/04/[address] active 10 UNSPECIFIED DEMENTIA, UNSPECIFIED SEVERITY, WITHOUT BEHAVIORAL DISTURBANCE, PSYCHOTIC DISTURBANCE, MOOD DISTURBANCE, AND ANXIETY 04/04/[address] active 11 UNSPECIFIED FRACTURE OF UPPER END OF RIGHT HUMERUS, SUBSEQUENT ENCOUNTER FOR FRACTURE WITH ROUTINE HEALING 04/04/[address] active Reason for Referral No Reasons for Referral Entered Social History Social History Observation Description Start Date End Date Code Code System Current Smoking Status Tobacco smoking consumption unknown 824950189 SNOMED CT Sex Assigned At Male 1940 96094-2 [facility] Gender Identity Vital Signs Code Code System Vitals Name Values and Units Timing Information 2339-0 [facility] Blood Sugar Xyodk=861.0 Units=mg/dL 04/23/2021 85838-1 [facility] Pain Level Value=0.0 04/23/2021 9279-1 [facility] Respiratory Rate Value=18.0 Units=/m in 04/22/2021 8462-4 [facility] Blood Pressure-Diastolic Value=75 Un its=mmHg 04/22/2021 8480-6 [facility] Blood Pressure-Systolic Jagod=391 Un its=mmHg 04/22/2021 8867-4 [facility] Heart rate Value=68.0 Units=/min 04/2021 13466-6 [facility] O2 % BldC Oximetry Value=97.0 Units= % 04/22/2021 8310-5 [facility] Body Temperature Value=97.8 Units= F 04/22/2021 8302-2 [facility] Height Value=65.0 Units=Inches 04/16/2021 88704-7 [facility] Weight Daksh=891.0 Units=Lbs
[2024-09-20 10:39] VITALS: BP 120/66; PULSE 78; RESP 14; TEMP 36.7; O2SAT 96
--- NOTE | 2024-09-20 10:42 | ED_ITS ---
HPI - Eye Problem General Chief complaint: Eye Problems Stated complaint: cyst on rt eyelid Time Seen by Provider: 09/20/24 10:42 Source: patient and family Mode of arrival: ambulatory Limitations: no limitations History of Present Illness HPI Narrative: 84-year-old male presents with complaint of tenderness, swelling and redness to right eyelid for past 3-4 days. states that patient had a stye to right ey elid. Has been a plane a wa compress. Also using a moisturizing eyedrops. Reports swelling is increasing. No vision changes. All systems reviewed and negative except as noted above. Related Data Home Medications ?Medication ?Instructions ?Recorded ?Confirmed ?Last Taken ?Type allopurinol 100 mg tablet 100 mg PO DAILY 03/23/21 03/25/21 03/25/21 09:20 History amlodipine 10 mg tablet 10 mg PO DAILY 03/23/21 03/25/21 03/25/21 09:20 History famotidine 20 mg tablet (Pepcid) 20 mg PO BID 03/23/21 03/25/21 Unknown History glipizide 5 mg tablet 5 mg PO DAILY 03/23/21 03/25/21 03/25/21 09:20 History losartan 50 mg tablet 50 mg PO DAILY 03/23/21 03/25/21 03/25/21 09:20 History pravastatin 20 mg tablet 20 mg PO DAILY 03/23/21 03/25/21 03/25/21 09:20 History alendronate 35 mg tablet mg PO 09/20/24 Unknown History ascorbic acid (vitamin C) 1,000 mg 1 g PO DAILY 09/20/24 09/20/24 Unknown History capsule cholecalciferol (vitamin D3) 10 10 mcg PO DAILY 09/20/24 09/20/24 Unknown History mcg (400 unit) capsule loratadine 10 mg tablet (Allergy 10 mg PO DAILY 09/20/24 09/20/24 Unknown History Relief (loratadine)) metformin 500 mg tablet mg 09/20/24 Unknown History prednisone 2.5 mg tablet mg 09/20/24 Unknown History Allergies Allergy/AdvReac Type Severity Reaction Status Date / Time No Known Allergies Allergy Unknown Verified 09/20/24 10:39 Review of Systems Review of Systems: [facility] Past Medical History Medical History Anxiety Dementia Diabetes Gout Hyperlipidemia Hypertension Osteoarthritis Surgical History Surgical History Cataract extraction status Family History Family History Mother Skin cancer Father Dementia Heart disease Social History Social History Social History: He and his adopted 2children. His is the poa. 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 Lifelong nonsmoker. No alcohol marijuana or illicit drugs code status: dnr Smoking status: Never smoker Second hand tobacco smoke exposure: No Alcohol intake: current Drinks per week: 2 Substance use: never Substance use type: does not use Spiritual care concerns: No Comments At time of signature, agree with nursing past medical, surgical, social and family history. There is no relevant family history pertinent to the presenting complaint. Exam Narrative: GENERAL: This is a well-nourished, well-developed patient, in no apparent distress. HEAD: normocephalic, atraumatic. EYES: PERRL. Sclera clear/white. Vision is grossly intact. erythematous pustule to R upper eyelid, tender on palpation. Surrounding erythema and swelling to R upper eyelid with mild warmth. EARS: External ears normal NOSE: External nose normal NECK: Neck supple, non-tender without lymphadenopathy, masses or thyromegaly. CARDIOVASCULAR: Regular rate and rhythm without murmurs, gallops, or rubs. RESPIRATORY: Clear to auscultation. Breath sounds equal bilaterally. No wheezes, rales, or rhonchi. SKIN: warm, Dry, intact with no suspicious lesions or rash, good texture and turgor. NEURO: awake, alert, and oriented to person, place and time. There were no obvious focal neurologic abnormalities. EXTREMITIES: No joint tenderness, effusion, or edema noted. Course Course Level of Care: Express Care Visit Vital Signs Vital signs: Vital Signs Temperature 36.7 C 09/20/24 10:39 Pulse Rate 78 09/20/24 10:39 Respiratory Rate 14 09/20/24 10:39 Blood Pressure 120/66 09/20/24 10:39 Pulse Oximetry 96 09/20/24 10:39 Oxygen Delivery Room Air 09/20/24 10:39 Temperature 36.7 C 09/20/24 10:39 Pulse Rate 78 09/20/24 10:39 Respiratory Rate 14 09/20/24 10:39 Blood Pressure 120/66 09/20/24 10:39 Pulse Oximetry 96 09/20/24 10:39 Oxygen Delivery Room Air 09/20/24 10:39 Reviewed MDM - Eye Problem MDM Narrative Medical decision making narrative: will treat external stye to right upper eyelid worth erythromycin. Due to increasing swelling, erythema to right upper eyelid will also prescribe Augmentin concerning for cellulitis. Patient is well-appearing, nontoxic. Afebrile. Discharge Plan Discharge Clinical Impression: External hordeolum Qualifiers: Laterality: right Eyelid: upper Qualified Code(s): H00.011 - Hordeolum externum right upper eyelid Patient Disposition: Home Condition: Stable Instructions: Antibiotic FormJewell (ED) Additional Instructions: Take antibiotic as prescribed until gone. Apply antibiotic ointment as prescribed. Apply a warm compress to affected eyelid 4 to 5 times a day and gently massage. Patient Language: Ukrainian Prescriptions: New erythromycin 5 mg/gram (0.5 %) ointment 1 applic RIGHT EYE QID 10 Days Qty: 3.5 0RF amoxicillin-pot clavulanate 875-125 mg tablet 1 tablet PO Q12H 7 Days Qty: 14 0RF No Action melatonin 3 mg Tablet 6 mg PO HS Qty: 30 0RF alprazolam 0.25 mg tablet 0.25 mg PO DAILY Qty: 30 0RF Rx Instructions: 0.25 mg orally alendronate 35 mg tablet PO prednisone 2.5 mg tablet loratadine [Allergy Relief (loratadine)] 10 mg tablet 10 mg PO DAILY metformin 500 mg tablet cholecalciferol (vitamin D3) 10 mcg (400 unit) capsule 10 mcg PO DAILY ascorbic acid (vitamin C) 1,000 mg capsule 1 g PO DAILY allopurinol 100 mg tablet 100 mg PO DAILY amlodipine 10 mg tablet 10 mg PO DAILY pravastatin 20 mg tablet 20 mg PO DAILY glipizide 5 mg tablet 5 mg PO DAILY famotidine [Pepcid] 20 mg Tablet 20 mg PO BID losartan 50 mg Tablet 50 mg PO DAILY Follow-up/Referrals: Bhutto,Declan [Other] Time of Disposition: 10:51
== END 2024-09-20 10:55 | disposition home or self-care (01) ==
PROVIDERS: Emergency Provider Nurse Practitioner Family
DX: H00.011 Hordeolum externum right upper eyelid (principal); E11.9 Type 2 diabetes mellitus without complications; I10 Essential (primary) hypertension; E78.5 Hyperlipidemia, unspecified; F03.90 Unspecified dementia, unspecified severity, without behavioral disturbance, psychotic disturbance, mood disturbance, and anxiety; Z79.891 Long term (current) use of opiate analgesic; Z79.899 Other long term (current) drug therapy
CPT/HCPCS: 99213; G0463